=== PATIENT | male | born 1950 | race Caucasian/White ===

== ENCOUNTER 2016-12-21 08:20 | Inpatient (IN) ==
[2016-12-21] MEDS ORDERED: DEXTROSE 50% 25 GM/50 ML VIAL IV PRN (11:57)
[2016-12-21] MEDS ORDERED: GLUCAGON 1 MG VIAL IM PRN (11:57)
[2016-12-21] MEDS ORDERED: oxyCODONE/ACETAMINOPHEN 5-325 MG TABLET PO PRN (12:09)
--- NOTE | 2016-12-21 12:17 | Cardiothoracic History & Phys ---
History of Present Illness Chief complaint: chest pain History of present illness: Mr. Choi is a 66 year old male to [facility] with a complaint of substernal chest discomfort. Patient underwent evaluation by Dr. Stone including cardiac catheterization which demonstrated critical left main coronary disease the patient is referred for bypass surgery. 3 admitted for that purpose. Past medical history is significant for history of morbid obesity. The patient weighed up to 500 pounds but has lost down to wait of 400 pounds where he is now. As a history of musculoskeletal discomfort hyperlipidemia hypertension and chronic pain syndrome. Patient's family history and review of systems are noncontributory to the present illness. Physical examination: Patient is an obese white male in no acute distress. Examination of HEENT show the pupils are equal and react to light extraocular motions are intact. The oropharynx is benign. Examination of the neck showsno masses and there is no thyromegaly. Examination the chest is clear to percussion and auscultation. Examination of heart shows regular sinus rhythm and there are no murmurs. Examination the abdomen shows no masses or organomegaly and there is no tenderness. Examination extremities shows no cyanosis or edema. Neurological examination is grossly within normal limits. Assessment: Coronary artery disease including left main coronary stenosis. Plan: Coronary bypass surgery 12/26/2016. Quality Measures - VTE Contraindication to Pharmacological VTE Prophylaxis: High Risk of Bleeding
[2016-12-21] MEDS ORDERED: ZALEPLON 5 MG CAPSULE PO PRN (16:08)
[2016-12-21] MEDS: SODIUM CHLORIDE 0.9% 1,000 ML IV SCH (16:26)
[2016-12-21] MEDS: CITALOPRAM 20 MG TABLET PO SCH (20:54)
[2016-12-21] MEDS: CHLORHEXIDINE 0.12% ORAL RINSE 60 ML BOTTLE SWISH/SPIT SCH (20:54)
[2016-12-21] MEDS: ATORVASTATIN 10 MG TABLET PO SCH (20:54)
--- NOTE | 2016-12-22 09:32 | Cardiothoracic Progress Note ---
Cardiothoracic Subjective Interval history: She is ready for surgery on Saturday. His body habitus is going to make surgery a formidable challenge. Exam (Progress Note) - Constitutional Vitals: Period Temp Pulse Resp BP Sys/Lobo Pulse Ox Last 24 Hr 98.1 F-99.6 F 71-85 16-20 106-153/55-72 92-96 Quality Measures - VTE Contraindication to Pharmacological VTE Prophylaxis: High Risk of Bleeding
[2016-12-22] MEDS: LISINOPRIL 20 MG TABLET PO SCH (10:03)
[2016-12-22] MEDS: TRIAMTERENE/HCTZ 37.5-25 MG TABLET PO SCH (10:03)
[2016-12-22] MEDS: CHLORHEXIDINE 0.12% ORAL RINSE 60 ML BOTTLE SWISH/SPIT SCH ×2 (10:04→20:53)
[2016-12-22] MEDS: SODIUM CHLORIDE 0.9% 1,000 ML IV SCH (14:54)
[2016-12-22] MEDS: CITALOPRAM 20 MG TABLET PO SCH (20:53)
[2016-12-22] MEDS: ATORVASTATIN 10 MG TABLET PO SCH (20:53)
--- NOTE | 2016-12-23 08:26 | Cardiothoracic Progress Note ---
Cardiothoracic Subjective Interval history: Patient is ready for surgery on Saturday. Exam (Progress Note) - Constitutional Vitals: Period Temp Pulse Resp BP Sys/Lobo Pulse Ox Last 24 Hr 97.9 F-99.0 F 65-99 18-24 110-141/52-84 92-96 Quality Measures - VTE Contraindication to Pharmacological VTE Prophylaxis: High Risk of Bleeding
[2016-12-23] MEDS: LISINOPRIL 20 MG TABLET PO SCH (09:07)
[2016-12-23] MEDS: CHLORHEXIDINE 0.12% ORAL RINSE 60 ML BOTTLE SWISH/SPIT SCH ×2 (09:07→20:29)
[2016-12-23] MEDS: TRIAMTERENE/HCTZ 37.5-25 MG TABLET PO SCH (09:07)
[2016-12-23] MEDS: SODIUM CHLORIDE 0.9% 1,000 ML IV SCH (15:23)
[2016-12-23] MEDS: CITALOPRAM 20 MG TABLET PO SCH (20:28)
[2016-12-23] MEDS: ATORVASTATIN 10 MG TABLET PO SCH (20:28)
--- NOTE | 2016-12-24 06:25 | Cardiothoracic Progress Note ---
Cardiothoracic Subjective Interval history: Patient is pain-free and is ready for surgery on Saturday. Exam (Progress Note) - Constitutional Vitals: Period Temp Pulse Resp BP Sys/Lobo Pulse Ox Last 24 Hr 97.8 F-99.0 F 60-82 18-22 109-144/54-67 92-94 Quality Measures - VTE Contraindication to Pharmacological VTE Prophylaxis: High Risk of Bleeding
--- NOTE | 2016-12-24 07:32 | EKG Report ---
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
[2016-12-24] MEDS: LISINOPRIL 20 MG TABLET PO SCH (08:48)
[2016-12-24] MEDS: TRIAMTERENE/HCTZ 37.5-25 MG TABLET PO SCH (08:48)
[2016-12-24] MEDS: CHLORHEXIDINE 0.12% ORAL RINSE 60 ML BOTTLE SWISH/SPIT SCH ×2 (08:51→20:34)
[2016-12-24 11:59] LABS: Basophils % 0.4 % (0.0-0.8); Eosinophils # 0.1 10*3/uL (0.0-0.87); Eosinophils % 1.7 % (0.00-10.9); Hematocrit 42.1 VOL% (42.0-52.0); Hemoglobin 13.8 GM/DL (14.0-18.0); Immature Granulocytes % 0.3 %; Immature Granulocytes Absolute 0.02 #; Lymphocytes # 1.5 10*3/uL (1.4-4.0); Lymphocytes % 21.1 % (21.2-54.2); Mean Corpuscular HGB Conc 32.8 GM/DL (32-36); Mean Corpuscular Hemoglobin 30 PG (27-34); Mean Corpuscular Volume 90.3 FL (87-102); Mean Platelet Volume 11.3 FL (9.6-12.0); Monocytes # 0.6 10*3/uL (0.11-0.8); Monocytes % 8.3 % (1.7-12.7); Neutrophils # 4.9 10*3/uL (1.4-7.4); Neutrophils % 68.2 % (38.7-73.9); Platelet Count 171 T/CUMM (130-400); Red Blood Count 4.66 MC/CUMM (3.8-5.5); Red Cell Distribution Width 14.9 % (9.3-17.3); White Blood Count 7.2 T/CUMM (4-12)
[2016-12-24 12:42] LABS: Albumin 4.1 G/DL (3.4-5.0); Bilirubin,Total 1.3 MG/DL (0.2-1.0); Calcium 10.1 MG/DL (8.5-10.1); Osmolality,Calculated 285.3 MOS/KG (273-304); Potassium 4.3 MMOL/L (3.5-5.1); Total Protein 7.1 G/DL (6.4-8.3)
--- NOTE | 2016-12-24 14:11 | XRay Report ---
History: Coronary artery disease Date: 12/24/2016 Study: Chest x-ray PA and lateral Comparison exam: No previous currently available The cardiac silhouette is not enlarged. There is no mediastinal mass. There is mild aortic arch calcification. The pulmonary vasculature is not engorged. There is no pleural effusion. There is no infiltrate to suggest pneumonia. There is osteopenia and mild thoracic spondylosis. Impression: No acute cardiopulmonary process PROCEDURE INTERPRETED AT [facility] DEPARTMENT OF RADIOLOGY Final Report Signed by: Dr. Darling Boyd
[2016-12-24] MEDS: SODIUM CHLORIDE 0.9% 1,000 ML IV SCH (16:08)
[2016-12-24] MEDS: CITALOPRAM 20 MG TABLET PO SCH (20:33)
[2016-12-24] MEDS: ATORVASTATIN 10 MG TABLET PO SCH (20:33)
[2016-12-25] MEDS: LISINOPRIL 20 MG TABLET PO SCH (09:08)
[2016-12-25] MEDS: CHLORHEXIDINE 0.12% ORAL RINSE 60 ML BOTTLE SWISH/SPIT SCH ×2 (09:09→20:39)
[2016-12-25] MEDS: TRIAMTERENE/HCTZ 37.5-25 MG TABLET PO SCH (09:09)
--- NOTE | 2016-12-25 09:50 | Cardiothoracic Progress Note ---
Cardiothoracic Subjective Interval history: Patient is pain-free and is ready for surgery in the morning. Exam (Progress Note) - Constitutional Vitals: Period Temp Pulse Resp BP Sys/Lobo Pulse Ox Last 24 Hr 97.2 F-98.1 F 62-69 18-20 117-150/57-66 92-96 Result/EKG - Labs CBC & BMP: 12/24/16 11:53 12/24/16 11:53 Labs: Laboratory Results - last 24 hr 12/24/16 12/24/16 11:53 11:53 WBC 7.2 RBC 4.66 Hgb 13.8 L Hct 42.1 MCV 90.3 MCH 30 MCHC 32.8 RDW 14.9 Plt Count 171 MPV 11.3 Neut % (Auto) 68.2 Lymph % (Auto) 21.1 L Piatt % (Auto) 8.3 Eos % (Auto) 1.7 Baso % (Auto) 0.4 Neut # (Auto) 4.9 Lymph # (Auto) 1.5 Piatt # (Auto) 0.6 Eos # (Auto) 0.1 Baso # (Auto) 0.0 Immature Gran % 0.3 Nucleated RBC % 0.0 Immature Gran # 0.02 Nucleated RBCs # 0.00 Sodium 141 Potassium 4.3 Chloride 105 Carbon Dioxide 24 Anion Gap 16.3 H BUN 23 H Creatinine 1.10 GFR Calculation 107 BUN/Creatinine Ratio 20.00 Glucose 109 H Calculated Osmolality 285.3 Calcium 10.1 Total Bilirubin 1.30 H AST 22 ALT 22 Alkaline Phosphatase 50 Total Protein 7.1 Albumin 4.1 Globulin 3.0 Albumin/Globulin Ratio 1.3 Quality Measures - VTE Contraindication to Pharmacological VTE Prophylaxis: High Risk of Bleeding
[2016-12-25] MEDS ORDERED: CEFUROXIME INJ 1,500 MG in SODIUM CHLORIDE 0.9% 100 ML IV ONE (11:57)
[2016-12-25] MEDS: CHLORHEXIDINE 4% SOLN 118 ML BOTTLE TOP SCH ×2 (17:14→20:08)
[2016-12-25] MEDS: ATORVASTATIN 10 MG TABLET PO SCH (20:08)
[2016-12-25] MEDS: CITALOPRAM 20 MG TABLET PO SCH (20:08)
[2016-12-26 03:39] LABS: ABG Base Excess 0.6 MMOL/L (-2.5-2.5); ABG HCO3 24.5 MMOL/L (20-26); ABG Oxygen Saturation 95.2 % (95-100); ABG PCO2 36.7 MM HG (35-48); ABG PH 7.442 (7.35-7.45); ABG PO2 74.2 MM HG (80-95); ABG TCO2 25.6 MMOL/L (23-27); Allen Test Positive; Pt O2 Delivery Device Room Air
[2016-12-26] MEDS ORDERED: PAPAVERINE 60 MG/2 ML VIAL ONE (04:37)
[2016-12-26] MEDS ORDERED: VANCOMYCIN 1,000 MG VIAL ONE (04:37)
[2016-12-26] MEDS ORDERED: FAMOTIDINE 20 MG/2 ML VIAL IV ONE (05:30)
[2016-12-26] MEDS ORDERED: LORazepam 1 MG TABLET PO ONE (05:30)
[2016-12-26] MEDS ORDERED: CEFUROXIME INJ 1,500 MG in SODIUM CHLORIDE 0.9% 100 ML IV ONE (06:00)
[2016-12-26] MEDS: CHLORHEXIDINE 0.12% ORAL RINSE 60 ML BOTTLE SWISH/SPIT SCH ×2 (06:15→17:26)
[2016-12-26] MEDS: CHLORHEXIDINE 4% SOLN 118 ML BOTTLE TOP SCH ×2 (06:16→17:26)
[2016-12-26] MEDS: TRIAMTERENE/HCTZ 37.5-25 MG TABLET PO SCH ×2 (06:16→17:26)
[2016-12-26] MEDS: LISINOPRIL 20 MG TABLET PO SCH ×2 (06:16→17:26)
[2016-12-26 06:35] LABS: INR 1.1; PT Patient Result 11.4 SECS; Partial Thromboplastin Time 27.8 SECS (0-40)
[2016-12-26] MEDS ORDERED: AMINOCAPROIC ACID 5,000 MG/20 ML VIAL IV ONE ×2 (06:44→10:39)
[2016-12-26] MEDS ORDERED: MINERAL OIL/PETROLATUM OPH OINT 3.5 GM TUBE ONE ×2 (06:44→10:39)
[2016-12-26] MEDS ORDERED: PHENYLEPHRINE 20 MG/250 ML PREMIX IV ONE (06:44)
[2016-12-26] MEDS ORDERED: ETOMIDATE 20 MG/10 ML VIAL IV ONE ×2 (06:44→10:39)
[2016-12-26] MEDS ORDERED: NITROGLYCERIN 50 MG/250 ML BOTTLE IV ONE (06:44)
[2016-12-26] MEDS ORDERED: VECURONIUM 10 MG VIAL IV ONE (06:44)
[2016-12-26] MEDS ORDERED: CALCIUM CHLORIDE 1,000 MG/10 ML SYRINGE IV ONE ×3 (06:44→10:38)
[2016-12-26 07:38] LABS: ABG HCO3 24.5 MMOL/L (20-26); ABG PCO2 33.3 MM HG (35-48); ABG PH 7.453 (7.35-7.45); ABG TCO2 20.5 MMOL/L (23-27); Glucose Heart Surgery 105 MG/DL (74-106); Hematocrit Heart Surgery 37.3 PERCENT (42-52); Hemoglobin Heart Surgery 12.1 G/DL (14.0-18.0); Ionized Calcium Arterial 1.19 MMOL/L (1.21-1.46); PCO2 Patient Temp Arterial 33.3 MMHG; PH Patient Temp Arterial 7.453; Patient Temperature 37 CELCIUS; Sodium Heart/CVR 137 MMOL/L (135-145)
[2016-12-26 07:43] LABS: Apearance,Urine CLEAR (Clear); Bilirubin,Urine Negative (Negative); Blood, Urine Negative (Negative); Glucose,Urine (UA) Negative (Negative); Ketones,Urine Negative (Negative); Mucus,Urine Occasional /LPF (Occasional); Nitrite,Urine Negative (Negative); Protein,Urine Negative; Urine Color Yellow (Yellow); Urine Urobilinogen < 2.0 EU/DL (0.2-1.0); WBC,Urine <1 /HPF (0-6)
[2016-12-26 08:49] LABS: Hematocrit Heart Surgery 28.7 PERCENT (42-52); Hemoglobin Heart Surgery 9.3 G/DL (14.0-18.0); PCO2 Patient Temp Venous 39.6 MM HG; PH Patient Temp Venous 7.407; PO2 Patient Temp Venous 38.5 MM HG; Potassium Heart/CVR 4.8 MMOL/L (3.5-5.1); VBG Base Excess 0.4 MEQ/L (0-4); VBG HCO3 24.5 MEQ/L (24-28); VBG PCO2 43.6 MMHG (41-51); VBG PH 7.378; VBG PO2 44.2 MMHG (17-40)
[2016-12-26 09:25] LABS: Hematocrit Heart Surgery 28.5 PERCENT (42-52); Hemoglobin Heart Surgery 9.2 G/DL (14.0-18.0); PH Patient Temp Venous 7.355; PO2 Patient Temp Venous 40.4 MM HG; Potassium Heart/CVR 5.9 MMOL/L (3.5-5.1); VBG Base Excess -1.5 MEQ/L (0-4); VBG HCO3 22.8 MEQ/L (24-28); VBG Oxygen Saturation 74.1 %; VBG PH 7.355; VBG PO2 40.4 MMHG (17-40)
[2016-12-26 09:52] LABS: ABG Base Excess -2.6 MMOL/L (-2.5-2.5); ABG HCO3 22.2 MMOL/L (20-26); ABG Oxygen Saturation 99.7 % (95-100); ABG PCO2 39.6 MM HG (35-48); ABG PH 7.363 (7.35-7.45); ABG TCO2 20.5 MMOL/L (23-27); Glucose Heart Surgery 190 MG/DL (74-106); Hematocrit Heart Surgery 31.1 PERCENT (42-52); Hemoglobin Heart Surgery 10.1 G/DL (14.0-18.0); Ionized Calcium Arterial 1.24 MMOL/L (1.21-1.46); PCO2 Patient Temp Arterial 39.6 MMHG; PH Patient Temp Arterial 7.363; Patient Temperature 37 CELCIUS; Potassium Heart/CVR 4.6 MMOL/L (3.5-5.1); Sodium Heart/CVR 132 MMOL/L (135-145)
[2016-12-26] MEDS ORDERED: DEXTROSE 5% KCL 20 MEQ 20 MEQ/1,000 ML BAG IV ONE (09:58)
[2016-12-26] MEDS ORDERED: MAGNESIUM SULFATE 1 GM/2 ML VIAL ONE (09:58)
[2016-12-26] MEDS ORDERED: HEPARIN 10,000 UNIT/10 ML VIAL ONE (09:58)
[2016-12-26] MEDS ORDERED: methylPREDNISolone SOD SUC 1,000 MG/8 ML VIAL ONE (09:58)
[2016-12-26] MEDS ORDERED: PROTAMINE SULFATE 250 MG/25 ML VIAL IV ONE (09:58)
[2016-12-26] MEDS ORDERED: FUROSEMIDE 20 MG/2 ML VIAL ONE (09:58)
[2016-12-26] MEDS ORDERED: MANNITOL 12.5 GM/50 ML VIAL IV ONE (09:58)
[2016-12-26] MEDS ORDERED: SODIUM BICARBONATE 50 MEQ/50 ML SYRINGE IV ONE (09:58)
[2016-12-26] MEDS ORDERED: ALBUMIN 25% 25 GM/100 ML VIAL IV ONE (09:58)
[2016-12-26] MEDS ORDERED: POTASSIUM CHLORIDE 20 MEQ/10 ML VIAL ONE (09:59)
[2016-12-26] MEDS ORDERED: PHENYLEPHRINE DRIP 40 MG/250 ML PREMIX IV ONE (09:59)
[2016-12-26] MEDS ORDERED: NITROPRUSSIDE 50 MG/2 ML VIAL ONE (09:59)
[2016-12-26] MEDS ORDERED: POTASSIUM CHLORIDE RIDER 100 ML IV ONE (09:59)
[2016-12-26] MEDS ORDERED: PROTAMINE SULFATE 50 MG/5 ML VIAL IV ONE ×3 (09:59→11:08)
[2016-12-26] MEDS ORDERED: ALBUMIN 5% 12.5 GM/250 ML VIAL IV ONE (10:03)
[2016-12-26] MEDS ORDERED: ACETAMINOPHEN 650 MG SUPP RECTAL PRN (10:29)
[2016-12-26] MEDS ORDERED: ALBUMIN 5% 12.5 GM in PREMIX 1 EACH IV PRN (10:29)
[2016-12-26] MEDS ORDERED: LACTATED RINGERS 250 ML IV PRN (10:29)
[2016-12-26] MEDS ORDERED: DEXTROSE 50% 25 GM/50 ML VIAL IV PRN ×2 (10:29)
[2016-12-26] MEDS ORDERED: POTASSIUM CHLORIDE RIDER 10 MEQ in PREMIX 1 EACH IV PRN (10:29)
[2016-12-26] MEDS ORDERED: INSULIN REGULAR 100 UNIT/ML IV ONE (10:29)
[2016-12-26] MEDS ORDERED: PHENYLEPHRINE DRIP 40 MG/250 ML PREMIX IV PRN (10:29)
[2016-12-26] MEDS ORDERED: NITROPRUSSIDE 100 MG in DEXTROSE 5% 250 ML IV PRN (10:29)
[2016-12-26] MEDS ORDERED: CALCIUM CHLORIDE 1,000 MG/10 ML SYRINGE IV PRN (10:29)
[2016-12-26] MEDS ORDERED: MORPHINE 2 MG/1 ML SYRINGE IV PRN (10:29)
[2016-12-26] MEDS ORDERED: MORPHINE 10 MG/1 ML VIAL IV PRN (10:29)
[2016-12-26] MEDS ORDERED: VECURONIUM 10 MG VIAL IV PRN ×2 (10:29)
[2016-12-26] MEDS ORDERED: MIDAZOLAM 2 MG/2 ML VIAL IV PRN (10:29)
[2016-12-26] MEDS ORDERED: MAGNESIUM SULF RIDER 4 GM in PREMIX 1 EACH IV PRN (10:29)
[2016-12-26] MEDS ORDERED: ONDANSETRON 4 MG/2 ML VIAL IV PRN (10:29)
[2016-12-26] MEDS ORDERED: INSULIN REGULAR 100 UNIT/ML IV PRN (10:29)
[2016-12-26] MEDS ORDERED: MIDAZOLAM 10 MG/2 ML VIAL IV PRN (10:29)
[2016-12-26] MEDS ORDERED: MAGNESIUM SULF RIDER 2 GM in PREMIX 1 EACH IV PRN (10:29)
[2016-12-26] MEDS ORDERED: SODIUM CHLORIDE 0.45% 1,000 ML IV SCH ×2 (10:30)
[2016-12-26] MEDS ORDERED: INSULIN REGULAR DRIP 100 ML IV SCH (10:30)
[2016-12-26] MEDS ORDERED: KETOROLAC 30 MG/1 ML VIAL IV SCH (10:30)
[2016-12-26] MEDS ORDERED: SEVOFLURANE 1 UNIT/15 MINUTE INH ONE (10:38)
[2016-12-26] MEDS ORDERED: HEPARIN/NACL 0.9% 2 UNITS/ML 500 ML IV ONE (10:38)
[2016-12-26] MEDS ORDERED: SUFentanil 250 MCG/5 ML AMP ONE ×2 (10:38)
[2016-12-26] MEDS ORDERED: SODIUM CHLORIDE 0.9% 1,000 ML IV ONE (10:39)
[2016-12-26] MEDS ORDERED: SODIUM CHLORIDE 0.9% 100 ML IV ONE (10:39)
[2016-12-26] MEDS ORDERED: ePHEDrine 50 MG/ML AMP ONE (10:39)
[2016-12-26] MEDS ORDERED: SODIUM CHLORIDE 0.9% 250 ML IV ONE (10:39)
[2016-12-26] MEDS ORDERED: MIDAZOLAM 10 MG/2 ML VIAL ONE (10:39)
[2016-12-26] MEDS ORDERED: LACTATED RINGERS 1,000 ML IV ONE (10:39)
[2016-12-26] MEDS ORDERED: NITROGLYCERIN DRIP 50 MG/250 ML BOTTLE IV ONE (10:39)
--- NOTE | 2016-12-26 11:15 | XRay Report ---
Portable chest Date: 12/26/2016 Clinical history: Line placement Comparison: 12/24/2016 Technique: Portable AP sitting chest Findings: The heart appears larger in size with interval median sternotomy. The endotracheal tube, nasogastric tube, and mediastinal chest tubes are in satisfactory position. Right IJ CVP line with tip at junction of SVC and right atrium. No definite pneumothorax is identified. Progressive diffuse parenchymal findings assessment of the lung bases with small pleural effusions. Impression: Interval median sternotomy with support devices in satisfactory position. No definite pneumothorax. Progressive atelectasis/edema especially at the lung bases with small pleural effusions. PROCEDURE INTERPRETED AT [facility] DEPARTMENT OF RADIOLOGY Final Report Signed by: Dr. Leeanne Auguste
--- NOTE | 2016-12-26 11:22 | Operative Note ---
Date of procedure: 12/26/16 Pre-op diagnosis: coronary artery disease Post-op diagnosis: same Procedure: Procedure: Coronary bypass grafting times to the left internal mammary grafted anterior descending coronary artery and a saphenous vein graft to the obtuse marginal coronary artery. Findings: Patient is a 66-year-old man who presented to [facility] with substernal chest discomfort and cardiac catheterization which demonstrated left main coronary stenosis. Patient was referred for bypass surgery and its time of surgery left ventricular function was noted to be normal and a left internal mammary graft was placed to a large undiseased anterior descending coronary artery and saphenous vein graft was placed to a large obtuse marginal coronary artery which was also free of disease. Patient tolerated the procedure well was returned recovery in satisfactory condition. Procedure: Patient brought to the operating room placed on the operating table in the supine position. Operating table in the supine position. Chest abdomen and legs were prepped and draped in a sterile fashion and the greater saphenous vein was harvested from the right lower leg and prepared as an arterial graft. Incision leg was closed with 30 subcutaneous cutaneous Monopril and 3-0 subcuticular Monocryl. Attention was then turned to the sternum and a standard sternotomy incision was made and the sternum was divided. Heart was suspended in a pericardial cradle and the left internal mammary artery was dissected free from its position in the anterior chest wall and prepared as an arterial graft. Patient was prepared for cardiopulmonary bypass with systemic heparinization and cannulation of the ascending aorta and right atrium. Cardiopulmonary bypass was begun and the aorta was crossclamped and the heart arrested with cardioplegia solution injected into the aortic root. Heart was protected during the period of crossclamping with topical saline slush. Distal anastomoses were constructed as noted above and then the aorta was unclamped reestablished and cardiac action. Proximal anastomosis was constructed between the ascending aorta and the inflow end of the saphenous vein graft. Patient was then weaned from cardiopulmonary bypass without difficulty. Heparin effect was reversed with protamine and decannulation carried out in the usual fashion with the defects in the ascending aorta and right atrium closed with 3-0 Prolene. Operative field was inspected for hemostasis Anesthesia: IFEANYI Surgeon / Physician: Vicente Zavala Estimated blood loss: other Specimens: none sent Condition: stable Disposition: ICU Results - Labs CBC & BMP: 12/26/16 07:32 03/06/17 11:53 Discharge Plan - Discharge Medications No Action hydrALAZINE TAB [Apresoline Tab] 50 mg PO TID Benazepril [Lotensin] 40 mg PO DAILY Triamterene/Hydrochlorothiazid [Triamterene-Hctz 37.5-25 mg Tb] 1 tablet PO DAILY Furosemide [Furosemide] 40 mg PO DAILY Cholecalciferol (Vitamin D3) [Vitamin D3] 5,000 unit PO DAILY Atorvastatin Calcium 10 mg PO DAILY Citalopram Hydrobromide [Citalopram HBr] 20 mg PO DAILY - Follow Up or Referral - Forms/Instructions
[2016-12-26 11:30] LABS: Basophils % 0.4 % (0.0-0.8); Eosinophils # 0.1 10*3/uL (0.0-0.87); Eosinophils % 1.4 % (0.00-10.9); Hematocrit 34.6 VOL% (42.0-52.0); Immature Granulocytes % 0.5 %; Immature Granulocytes Absolute 0.03 #; Lymphocytes # 0.7 10*3/uL (1.4-4.0); Lymphocytes % 12.3 % (21.2-54.2); Mean Corpuscular HGB Conc 33.2 GM/DL (32-36); Mean Corpuscular Hemoglobin 30 PG (27-34); Mean Corpuscular Volume 89.9 FL (87-102); Mean Platelet Volume 11.7 FL (9.6-12.0); Monocytes # 0.5 10*3/uL (0.11-0.8); Monocytes % 9.5 % (1.7-12.7); Neutrophils # 4.3 10*3/uL (1.4-7.4); Neutrophils % 75.9 % (38.7-73.9); Platelet Count 133 T/CUMM (130-400); Red Blood Count 3.85 MC/CUMM (3.8-5.5); White Blood Count 5.7 T/CUMM (4-12)
[2016-12-26 11:31] LABS: ABG Base Excess -1.2 MMOL/L (-2.5-2.5); ABG HCO3 23.4 MMOL/L (20-26); ABG Oxygen Saturation 98.4 % (95-100); ABG PCO2 31.3 MM HG (35-48); ABG PH 7.452 (7.35-7.45); ABG TCO2 19.3 MMOL/L (23-27); Glucose Heart Surgery 138 MG/DL (74-106); Hematocrit Heart Surgery 37.1 PERCENT (42-52); Potassium Heart/CVR 4.4 MMOL/L (3.5-5.1)
[2016-12-26 11:34] LABS: Hemoglobin 11.5 GM/DL (14.0-18.0)
[2016-12-26 11:40] LABS: INR 1.2; Partial Thromboplastin Time 27.9 SECS (0-40)
[2016-12-26 12:00] LABS: Albumin 3.2 G/DL (3.4-5.0); Bilirubin,Total 1.4 MG/DL (0.2-1.0); Calcium 8.9 MG/DL (8.5-10.1); Magnesium 2.2 MG/DL (1.8-2.4); Osmolality,Calculated 287.3 MOS/KG (273-304); Potassium 4.6 MMOL/L (3.5-5.1); Total Protein 5.6 G/DL (6.4-8.3)
[2016-12-26 12:32] LABS: CKMB % 6.1 %
[2016-12-26 16:03] LABS: ABG HCO3 23.6 MMOL/L (20-26); ABG Oxygen Saturation 99.5 % (95-100); ABG PCO2 36.1 MM HG (35-48); ABG PH 7.414 (7.35-7.45); ABG TCO2 20.3 MMOL/L (23-27); Glucose Heart Surgery 175 MG/DL (74-106); Hematocrit Heart Surgery 37.7 PERCENT (42-52); Hemoglobin Heart Surgery 12.3 G/DL (14.0-18.0); Potassium Heart/CVR 4.9 MMOL/L (3.5-5.1)
[2016-12-26] MEDS ORDERED: LACTATED RINGERS 1,000 ML IV PRN (16:23)
[2016-12-26] MEDS ORDERED: INSULIN REGULAR 100 UNIT/ML SUBCUT SCH ×3 (16:48→20:00)
--- NOTE | 2016-12-26 16:58 | Anesthesia ---
Anesthesia Post OP - Post Ansesthetic Evaluation Patient seen in post op: Yes Resp: within normal limits CV: within normal limits Mental: within normal limits Temp: within normal limits [id number]: within normal limits Nausea and Vomiting: within normal limits Pain: within normal limits
[2016-12-26] MEDS ORDERED: INSULIN REGULAR 100 UNIT/ML ONE (17:31)
[2016-12-26] MEDS: INSULIN REGULAR 100 UNIT/ML SUBCUT SCH ×2 (17:33→20:14)
[2016-12-26] MEDS: CEFUROXIME INJ 1,500 MG in SODIUM CHLORIDE 0.9% 100 ML IV SCH (17:38)
[2016-12-26 18:13] LABS: ABG Base Excess -1.6 MMOL/L (-2.5-2.5); ABG HCO3 23.1 MMOL/L (20-26); ABG Oxygen Saturation 98.1 % (95-100); ABG PCO2 34.9 MM HG (35-48); ABG PH 7.415 (7.35-7.45); ABG TCO2 19.8 MMOL/L (23-27); Glucose Heart Surgery 185 MG/DL (74-106)
[2016-12-26 18:14] LABS: Potassium Heart/CVR 6.5 MMOL/L (3.5-5.1)
[2016-12-26] MEDS ORDERED: FUROSEMIDE 40 MG/4 ML VIAL IV ONE (18:33)
[2016-12-26 19:14] LABS: Troponin I Only 5.42 NG/ML (0.00-0.045)
[2016-12-26 19:59] LABS: ABG Base Excess -1.8 MMOL/L (-2.5-2.5); ABG HCO3 22.9 MMOL/L (20-26); ABG PCO2 33.4 MM HG (35-48); ABG PH 7.425 (7.35-7.45); ABG TCO2 19.4 MMOL/L (23-27); Glucose Heart Surgery 185 MG/DL (74-106); Hematocrit Heart Surgery 36.1 PERCENT (42-52); Hemoglobin Heart Surgery 11.7 G/DL (14.0-18.0); Potassium Heart/CVR 4.3 MMOL/L (3.5-5.1)
[2016-12-26] MEDS: POTASSIUM CHLORIDE RIDER 20 MEQ in PREMIX 1 EACH IV PRN ×2 (20:22→22:07)
[2016-12-26] MEDS ORDERED: CHLORHEXIDINE 0.12% ORAL RINSE 60 ML BOTTLE SWISH/SPIT SCH (21:00)
[2016-12-26 22:03] LABS: ABG Base Excess -1.8 MMOL/L (-2.5-2.5); ABG HCO3 22.9 MMOL/L (20-26); ABG Oxygen Saturation 99.1 % (95-100); ABG PCO2 38.5 MM HG (35-48); ABG PH 7.383 (7.35-7.45); ABG TCO2 20.4 MMOL/L (23-27); Glucose Heart Surgery 185 MG/DL (74-106); Hematocrit Heart Surgery 36.4 PERCENT (42-52); Hemoglobin Heart Surgery 11.8 G/DL (14.0-18.0); Potassium Heart/CVR 4.4 MMOL/L (3.5-5.1)
[2016-12-27 00:03] LABS: ABG HCO3 22.7 MMOL/L (20-26); ABG Oxygen Saturation 98.2 % (95-100); ABG PCO2 38.9 MM HG (35-48); ABG PH 7.377 (7.35-7.45); ABG TCO2 20.3 MMOL/L (23-27); Glucose Heart Surgery 176 MG/DL (74-106); Hematocrit Heart Surgery 36.8 PERCENT (42-52); Hemoglobin Heart Surgery 11.9 G/DL (14.0-18.0); Potassium Heart/CVR 4.7 MMOL/L (3.5-5.1)
[2016-12-27] MEDS: INSULIN REGULAR 100 UNIT/ML SUBCUT SCH ×6 (00:10→20:38)
[2016-12-27 01:31] LABS: ABG Base Excess -2.2 MMOL/L (-2.5-2.5); ABG HCO3 22.5 MMOL/L (20-26); ABG Oxygen Saturation 98.2 % (95-100); ABG PCO2 42.4 MM HG (35-48); ABG PH 7.349 (7.35-7.45); ABG TCO2 20.9 MMOL/L (23-27); Glucose Heart Surgery 175 MG/DL (74-106); Hematocrit Heart Surgery 35.8 PERCENT (42-52); Hemoglobin Heart Surgery 11.6 G/DL (14.0-18.0); Potassium Heart/CVR 4.5 MMOL/L (3.5-5.1)
[2016-12-27 03:53] LABS: ABG Base Excess -2.4 MMOL/L (-2.5-2.5); ABG HCO3 22.4 MMOL/L (20-26); ABG Oxygen Saturation 97.4 % (95-100); ABG PCO2 44.9 MM HG (35-48); ABG PO2 98.4 MM HG (80-95); ABG TCO2 21.3 MMOL/L (23-27); Glucose Heart Surgery 174 MG/DL (74-106); Hematocrit Heart Surgery 35.8 PERCENT (42-52); Hemoglobin Heart Surgery 11.6 G/DL (14.0-18.0); Potassium Heart/CVR 4.4 MMOL/L (3.5-5.1)
[2016-12-27 03:55] LABS: Basophils % 0.1 % (0.0-0.8); Hematocrit 34.3 VOL% (42.0-52.0); Hemoglobin 11.3 GM/DL (14.0-18.0); Immature Granulocytes % 0.5 %; Immature Granulocytes Absolute 0.06 #; Lymphocytes # 0.5 10*3/uL (1.4-4.0); Lymphocytes % 4.1 % (21.2-54.2); Mean Corpuscular HGB Conc 32.9 GM/DL (32-36); Mean Corpuscular Hemoglobin 30 PG (27-34); Mean Platelet Volume 12.1 FL (9.6-12.0); Monocytes # 0.5 10*3/uL (0.11-0.8); Monocytes % 4.6 % (1.7-12.7); Neutrophils # 10.1 10*3/uL (1.4-7.4); Neutrophils % 90.7 % (38.7-73.9); Platelet Count 124 T/CUMM (130-400); Red Blood Count 3.81 MC/CUMM (3.8-5.5); White Blood Count 11.1 T/CUMM (4-12)
[2016-12-27 04:31] LABS: Albumin 3.7 G/DL (3.4-5.0); Bilirubin,Direct 0.3 MG/DL (0.0-0.20); Bilirubin,Total 1.5 MG/DL (0.2-1.0); Magnesium 2.4 MG/DL (1.8-2.4); Osmolality,Calculated 292.1 MOS/KG (273-304); Potassium 4.6 MMOL/L (3.5-5.1); Total Protein 5.9 G/DL (6.4-8.3)
[2016-12-27 04:32] LABS: CKMB % 8.7 %
[2016-12-27 04:35] LABS: Troponin I Only 6.4 NG/ML (0.00-0.045)
[2016-12-27 05:12] LABS: Elliptocytes Few; Giant Platelets Few; Hypochromasia 1+; Lymphocytes 6 % (20-55); Platelet Estimate Normal; Segmented Neutrophils 90 % (50-85); Total Cells Counted 100
[2016-12-27] MEDS: CEFUROXIME INJ 1,500 MG in SODIUM CHLORIDE 0.9% 100 ML IV SCH (05:33)
--- NOTE | 2016-12-27 05:54 | Cardiothoracic Progress Note ---
Cardiothoracic Subjective Interval history: Patient is awake alert and extubated. Vital signs were stable through the night and his blood pressure and heart rate are within normal limits this morning. Blood gases are excellent postextubation and urine output has been good with a creatinine in the range of 1.3. Chest tube drainage is minimal and his chest tubes have been discontinued and he is ready for transfer to telemetry later this morning. Overall his progress is satisfactory. Exam (Progress Note) - Constitutional Vitals: Period Temp Pulse Resp BP Sys/Lobo Pulse Ox Last 24 Hr 96.5 F-98.5 F 80-94 8-16 104-145/41-97 93-98 Result/EKG - Labs CBC & BMP: 12/27/16 03:57 12/27/16 03:48 Labs: Laboratory Results - last 24 hr 12/25/16 12/26/16 12/26/16 11:30 05:57 07:32 WBC RBC Hgb Hct MCV MCH MCHC RDW Plt Count 67 L D MPV Neut % (Auto) Lymph % (Auto) [place] % (Auto) Eos % (Auto) Baso % (Auto) Neut # (Auto) Lymph # (Auto) [place] # (Auto) Eos # (Auto) Baso # (Auto) Total Counted Immature Gran % Nucleated RBC % Immature Gran # Segmented Neutrophils Lymphocytes Monocytes Nucleated RBCs # Platelet Estimate Giant Platelets Hypochromasia Elliptocytes INR 1.1 PT Patient/Control Mix 11.4 Circ Anticoag PTT 27.8 Patient Temperature ABG pH ABG pH at Pt Temp ABG pCO2 ABG pCO2 at Pt Temp ABG pO2 ABG pO2 at Pt Temp ABG HCO3 ABG Total CO2 ABG O2 Saturation ABG Base Excess ABG Sodium VBG pH VBG pCO2 VBG pO2 VBG HCO3 VBG Total CO2 VBG O2 Saturation VBG Base Excess Hemoglobin Hematocrit Potassium Glucose Ionized Calcium FiO2 Sodium Chloride Carbon Dioxide Anion Gap BUN Creatinine GFR Calculation BUN/Creatinine Ratio POC Glucose Calculated Osmolality Calcium Venous Ioniz Calcium Magnesium Total Bilirubin Direct Bilirubin AST ALT Alkaline Phosphatase Total Creatine Kinase CK-MB (CK-2) CK and CKMB Interp Troponin I Total Protein Albumin Globulin Albumin/Globulin Ratio Urine Color Urine Appearance Urine pH Ur Specific [place] Urine Protein Urine Glucose (UA) Urine Ketones Urine Blood Urine Nitrate Urine Bilirubin Urine Urobilinogen Urine Leukocytes Urine WBC Urine Mucus Ur Culture Indicated? Blood Type A POSITIVE Antibody Screen Negative Crossmatch See Detail 12/26/16 12/26/16 12/26/16 07:32 07:35 08:45 WBC RBC Hgb Hct MCV MCH MCHC RDW Plt Count MPV Neut % (Auto) Lymph % (Auto) [place] % (Auto) Eos % (Auto) Baso % (Auto) Neut # (Auto) Lymph # (Auto) [place] # (Auto) Eos # (Auto) Baso # (Auto) Total Counted Immature Gran % Nucleated RBC % Immature Gran # Segmented Neutrophils Lymphocytes Monocytes Nucleated RBCs # Platelet Estimate Giant Platelets Hypochromasia Elliptocytes INR PT Patient/Control Mix Circ Anticoag PTT Patient Temperature 37 35 ABG pH 7.453 H ABG pH at Pt Temp 7.453 7.407 ABG pCO2 33.3 L ABG pCO2 at Pt Temp 33.3 39.6 ABG pO2 446.0 H ABG pO2 at Pt Temp 446.0 38.5 ABG HCO3 24.5 ABG Total CO2 20.5 L ABG O2 Saturation 100.0 ABG Base Excess 0.0 ABG Sodium 137 132 L VBG pH 7.378 VBG pCO2 43.6 VBG pO2 44.2 H VBG HCO3 24.5 VBG Total CO2 23.7 VBG O2 Saturation 80.0 VBG Base Excess 0.4 Hemoglobin 12.1 L 9.3 L D Hematocrit 37.3 L 28.7 L Potassium 4.0 4.8 Glucose 105 200 H Ionized Calcium 1.19 L FiO2 80.00 Sodium Chloride Carbon Dioxide Anion Gap BUN Creatinine GFR Calculation BUN/Creatinine Ratio POC Glucose Calculated Osmolality Calcium Venous Ioniz Calcium 1.07 L Magnesium Total Bilirubin Direct Bilirubin AST ALT Alkaline Phosphatase Total Creatine Kinase CK-MB (CK-2) CK and CKMB Interp Troponin I Total Protein Albumin Globulin Albumin/Globulin Ratio Urine Color Yellow Urine Appearance Clear Urine pH 6.0 Ur Specific [place] 1.010 Urine Protein Negative Urine Glucose (UA) Negative Urine Ketones Negative Urine Blood Negative Urine Nitrate Negative Urine Bilirubin Negative Urine Urobilinogen < 2.0 H Urine Leukocytes Negative Urine WBC <1 Urine Mucus Occasional Ur Culture Indicated? 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 MPV Neut % (Auto) Lymph % (Auto) [place] % (Auto) Eos % (Auto) Baso % (Auto) Neut # (Auto) Lymph # (Auto) [place] # (Auto) Eos # (Auto) Baso # (Auto) Total Counted Immature Gran % Nucleated RBC % Immature Gran # Segmented Neutrophils Lymphocytes Monocytes Nucleated RBCs # Platelet Estimate Giant Platelets Hypochromasia Elliptocytes INR PT Patient/Control Mix Circ Anticoag PTT Patient Temperature 37 37 ABG pH 7.363 ABG pH at Pt Temp 7.355 7.363 ABG pCO2 39.6 ABG pCO2 at Pt Temp 43.0 39.6 ABG pO2 301.0 H ABG pO2 at Pt Temp 40.4 301.0 ABG HCO3 22.2 ABG Total CO2 20.5 L ABG O2 Saturation 99.7 ABG Base Excess -2.6 L ABG Sodium 131 L 132 L VBG pH 7.355 VBG pCO2 43.0 VBG pO2 40.4 H VBG HCO3 22.8 L VBG Total CO2 22.3 VBG O2 Saturation 74.1 VBG Base Excess -1.5 L Hemoglobin 9.2 L 10.1 L Hematocrit 28.5 L 31.1 L Potassium 5.9 H 4.6 Glucose 206 H 190 H Ionized Calcium 1.24 FiO2 21.00 Sodium Chloride Carbon Dioxide Anion Gap BUN Creatinine GFR Calculation BUN/Creatinine Ratio POC Glucose Calculated Osmolality Calcium Venous Ioniz Calcium 1.09 L Magnesium Total Bilirubin Direct Bilirubin AST ALT Alkaline Phosphatase Total Creatine Kinase CK-MB (CK-2) CK and CKMB Interp Troponin I Total Protein Albumin Globulin Albumin/Globulin Ratio Urine Color Urine Appearance Urine pH Ur Specific [place] Urine Protein Urine Glucose (UA) Urine Ketones Urine Blood Urine Nitrate Urine Bilirubin Urine Urobilinogen Urine Leukocytes Urine WBC Urine Mucus Ur Culture Indicated? Blood Type Antibody Screen Crossmatch 12/26/16 12/26/16 12/26/16 11:15 11:15 11:15 WBC 5.7 RBC 3.85 Hgb 11.5 L D Hct 34.6 L MCV 89.9 MCH 30 MCHC 33.2 RDW 15.0 Plt Count 133 D MPV 11.7 Neut % (Auto) 75.9 H Lymph % (Auto) 12.3 L [place] % (Auto) 9.5 Eos % (Auto) 1.4 Baso % (Auto) 0.4 Neut # (Auto) 4.3 Lymph # (Auto) 0.7 L [place] # (Auto) 0.5 Eos # (Auto) 0.1 Baso # (Auto) 0.0 Total Counted Immature Gran % 0.5 Nucleated RBC % 0.0 Immature Gran # 0.03 Segmented Neutrophils Lymphocytes Monocytes Nucleated RBCs # 0.00 Platelet Estimate Giant Platelets Hypochromasia Elliptocytes INR 1.2 PT Patient/Control Mix 13.0 Circ Anticoag PTT 27.9 Patient Temperature ABG pH ABG pH at Pt Temp ABG pCO2 ABG pCO2 at Pt Temp ABG pO2 ABG pO2 at Pt Temp ABG HCO3 ABG Total CO2 ABG O2 Saturation ABG Base Excess ABG Sodium VBG pH VBG pCO2 VBG pO2 VBG HCO3 VBG Total CO2 VBG O2 Saturation VBG Base Excess Hemoglobin Hematocrit Potassium 4.6 Glucose 131 H Ionized Calcium FiO2 Sodium 141 Chloride 107 Carbon Dioxide 21 Anion Gap 17.6 H BUN 27 H Creatinine 1.40 H GFR Calculation 80 BUN/Creatinine Ratio 19.00 POC Glucose Calculated Osmolality 287.3 Calcium 8.9 Venous Ioniz Calcium Magnesium 2.2 Total Bilirubin 1.40 H Direct Bilirubin AST 37 ALT 18 Alkaline Phosphatase 42 L Total Creatine Kinase CK-MB (CK-2) CK and CKMB Interp Troponin I Total Protein 5.6 L Albumin 3.2 L Globulin 2.4 Albumin/Globulin Ratio 1.3 Urine Color Urine Appearance Urine pH Ur Specific [place] Urine Protein Urine Glucose (UA) Urine Ketones Urine Blood Urine Nitrate Urine Bilirubin Urine Urobilinogen Urine Leukocytes Urine WBC Urine Mucus Ur Culture Indicated? Blood Type Antibody Screen Crossmatch 12/26/16 12/26/16 12/26/16 11:15 11:15 13:43 WBC RBC Hgb Hct MCV MCH MCHC RDW Plt Count MPV Neut % (Auto) Lymph % (Auto) [place] % (Auto) Eos % (Auto) Baso % (Auto) Neut # (Auto) Lymph # (Auto) [place] # (Auto) Eos # (Auto) Baso # (Auto) Total Counted Immature Gran % Nucleated RBC % Immature Gran # Segmented Neutrophils Lymphocytes Monocytes Nucleated RBCs # Platelet Estimate Giant Platelets Hypochromasia Elliptocytes INR PT Patient/Control Mix Circ Anticoag PTT Patient Temperature ABG pH 7.452 H ABG pH at Pt Temp ABG pCO2 31.3 L ABG pCO2 at Pt Temp ABG pO2 112.0 H ABG pO2 at Pt Temp ABG HCO3 23.4 ABG Total CO2 19.3 L ABG O2 Saturation 98.4 ABG Base Excess -1.2 ABG Sodium VBG pH VBG pCO2 VBG pO2 VBG HCO3 VBG Total CO2 VBG O2 Saturation VBG Base Excess Hemoglobin 12.0 L Hematocrit 37.1 L Potassium 4.4 Glucose 138 H Ionized Calcium FiO2 Sodium Chloride Carbon Dioxide Anion Gap BUN Creatinine GFR Calculation BUN/Creatinine Ratio POC Glucose 130 H Calculated Osmolality Calcium Venous Ioniz Calcium Magnesium Total Bilirubin Direct Bilirubin AST ALT Alkaline Phosphatase Total Creatine Kinase 225 CK-MB (CK-2) 13.8 H CK and CKMB Interp 6.1 Troponin I 3.000 H Total Protein Albumin Globulin Albumin/Globulin Ratio Urine Color Urine Appearance Urine pH Ur Specific [place] Urine Protein Urine Glucose (UA) Urine Ketones Urine Blood Urine Nitrate Urine Bilirubin Urine Urobilinogen Urine Leukocytes Urine WBC Urine Mucus Ur Culture Indicated? Blood Type Antibody Screen Crossmatch 12/26/16 12/26/16 12/26/16 16:00 18:06 18:24 WBC RBC Hgb Hct MCV MCH MCHC RDW Plt Count MPV Neut % (Auto) Lymph % (Auto) [place] % (Auto) Eos % (Auto) Baso % (Auto) Neut # (Auto) Lymph # (Auto) [place] # (Auto) Eos # (Auto) Baso # (Auto) Total Counted Immature Gran % Nucleated RBC % Immature Gran # Segmented Neutrophils Lymphocytes Monocytes Nucleated RBCs # Platelet Estimate Giant Platelets Hypochromasia Elliptocytes INR PT Patient/Control Mix Circ Anticoag PTT Patient Temperature ABG pH 7.414 7.415 ABG pH at Pt Temp ABG pCO2 36.1 34.9 L ABG pCO2 at Pt Temp ABG pO2 208.0 H 103.0 H ABG pO2 at Pt Temp ABG HCO3 23.6 23.1 ABG Total CO2 20.3 L 19.8 L ABG O2 Saturation 99.5 98.1 ABG Base Excess -1.0 -1.6 ABG Sodium VBG pH VBG pCO2 VBG pO2 VBG HCO3 VBG Total CO2 VBG O2 Saturation VBG Base Excess Hemoglobin 12.3 L 12.0 L Hematocrit 37.7 L 37.0 L Potassium 4.9 6.5 H* Glucose 175 H 185 H Ionized Calcium FiO2 Sodium Chloride Carbon Dioxide Anion Gap BUN Creatinine GFR Calculation BUN/Creatinine Ratio POC Glucose Calculated Osmolality Calcium Venous Ioniz Calcium Magnesium Total Bilirubin Direct Bilirubin AST ALT Alkaline Phosphatase Total Creatine Kinase 307 D CK-MB (CK-2) 27.5 H D CK and CKMB Interp 9.0 Troponin I 5.420 H D Total Protein Albumin Globulin Albumin/Globulin Ratio Urine Color Urine Appearance Urine pH Ur Specific [place] Urine Protein Urine Glucose (UA) Urine Ketones Urine Blood Urine Nitrate Urine Bilirubin Urine Urobilinogen Urine Leukocytes Urine WBC Urine Mucus Ur Culture Indicated? Blood Type Antibody Screen Crossmatch 12/26/16 12/26/16 12/26/16 18:24 19:57 21:58 WBC RBC Hgb Hct MCV MCH MCHC RDW Plt Count MPV Neut % (Auto) Lymph % (Auto) [place] % (Auto) Eos % (Auto) Baso % (Auto) Neut # (Auto) Lymph # (Auto) [place] # (Auto) Eos # (Auto) Baso # (Auto) Total Counted Immature Gran % Nucleated RBC % Immature Gran # Segmented Neutrophils Lymphocytes Monocytes Nucleated RBCs # Platelet Estimate Giant Platelets Hypochromasia Elliptocytes INR PT Patient/Control Mix Circ Anticoag PTT Patient Temperature ABG pH 7.425 7.383 ABG pH at Pt Temp ABG pCO2 33.4 L 38.5 ABG pCO2 at Pt Temp ABG pO2 124.0 H 138.0 H ABG pO2 at Pt Temp ABG HCO3 22.9 22.9 ABG Total CO2 19.4 L 20.4 L ABG O2 Saturation 99.0 99.1 ABG Base Excess -1.8 -1.8 ABG Sodium VBG pH VBG pCO2 VBG pO2 VBG HCO3 VBG Total CO2 VBG O2 Saturation VBG Base Excess Hemoglobin 11.7 L 11.8 L Hematocrit 36.1 L 36.4 L Potassium 4.6 4.3 4.4 Glucose 185 H 185 H Ionized Calcium FiO2 Sodium Chloride Carbon Dioxide Anion Gap BUN Creatinine GFR Calculation BUN/Creatinine Ratio POC Glucose Calculated Osmolality Calcium Venous Ioniz Calcium Magnesium Total Bilirubin Direct Bilirubin AST ALT Alkaline Phosphatase Total Creatine Kinase CK-MB (CK-2) CK and CKMB Interp Troponin I Total Protein Albumin Globulin Albumin/Globulin Ratio Urine Color Urine Appearance Urine pH Ur Specific [place] Urine Protein Urine Glucose (UA) Urine Ketones Urine Blood Urine Nitrate Urine Bilirubin Urine Urobilinogen Urine Leukocytes Urine WBC Urine Mucus Ur Culture Indicated? Blood Type Antibody Screen Crossmatch 12/26/16 12/27/16 12/27/16 23:56 01:27 03:48 WBC RBC Hgb Hct MCV MCH MCHC RDW Plt Count MPV Neut % (Auto) Lymph % (Auto) [place] % (Auto) Eos % (Auto) Baso % (Auto) Neut # (Auto) Lymph # (Auto) [place] # (Auto) Eos # (Auto) Baso # (Auto) Total Counted Immature Gran % Nucleated RBC % Immature Gran # Segmented Neutrophils Lymphocytes Monocytes Nucleated RBCs # Platelet Estimate Giant Platelets Hypochromasia Elliptocytes INR PT Patient/Control Mix Circ Anticoag PTT Patient Temperature ABG pH 7.377 7.349 L ABG pH at Pt Temp ABG pCO2 38.9 42.4 ABG pCO2 at Pt Temp ABG pO2 108.0 H 110.0 H ABG pO2 at Pt Temp ABG HCO3 22.7 22.5 ABG Total CO2 20.3 L 20.9 L ABG O2 Saturation 98.2 98.2 ABG Base Excess -2.0 -2.2 ABG Sodium VBG pH VBG pCO2 VBG pO2 VBG HCO3 VBG Total CO2 VBG O2 Saturation VBG Base Excess Hemoglobin 11.9 L 11.6 L Hematocrit 36.8 L 35.8 L Potassium 4.7 4.5 Glucose 176 H 175 H Ionized Calcium FiO2 Sodium Chloride Carbon Dioxide Anion Gap BUN Creatinine GFR Calculation BUN/Creatinine Ratio POC Glucose Calculated Osmolality Calcium Venous Ioniz Calcium Magnesium Total Bilirubin Direct Bilirubin AST ALT Alkaline Phosphatase Total Creatine Kinase 320 H CK-MB (CK-2) 27.7 H CK and CKMB Interp 8.7 Troponin I 6.400 H Total Protein Albumin Globulin Albumin/Globulin Ratio Urine Color Urine Appearance Urine pH Ur Specific [place] Urine Protein Urine Glucose (UA) Urine Ketones Urine Blood Urine Nitrate Urine Bilirubin Urine Urobilinogen Urine Leukocytes Urine WBC Urine Mucus Ur Culture Indicated? Blood Type Antibody Screen Crossmatch 12/27/16 12/27/16 12/27/16 03:48 03:48 03:57 WBC 11.1 D RBC 3.81 Hgb 11.3 L Hct 34.3 L MCV 90.0 MCH 30 MCHC 32.9 RDW 15.0 Plt Count 124 L MPV 12.1 H Neut % (Auto) 90.7 H Lymph % (Auto) 4.1 L [place] % (Auto) 4.6 Eos % (Auto) 0.0 Baso % (Auto) 0.1 Neut # (Auto) 10.1 H Lymph # (Auto) 0.5 L [place] # (Auto) 0.5 Eos # (Auto) 0.0 Baso # (Auto) 0.0 Total Counted 100 Immature Gran % 0.5 Nucleated RBC % 0.0 Immature Gran # 0.06 Segmented Neutrophils 90 H Lymphocytes 6 L Monocytes 4 Nucleated RBCs # 0.00 Platelet Estimate Normal Giant Platelets Few Hypochromasia 1+ Elliptocytes Few INR PT Patient/Control Mix Circ Anticoag PTT Patient Temperature ABG pH 7.330 L ABG pH at Pt Temp ABG pCO2 44.9 ABG pCO2 at Pt Temp ABG pO2 98.4 H ABG pO2 at Pt Temp ABG HCO3 22.4 ABG Total CO2 21.3 L ABG O2 Saturation 97.4 ABG Base Excess -2.4 ABG Sodium VBG pH VBG pCO2 VBG pO2 VBG HCO3 VBG Total CO2 VBG O2 Saturation VBG Base Excess Hemoglobin 11.6 L Hematocrit 35.8 L Potassium 4.6 4.4 Glucose 168 H 174 H Ionized Calcium FiO2 Sodium 142 Chloride 108 H Carbon Dioxide 24 Anion Gap 14.6 BUN 30 H Creatinine 1.30 GFR Calculation 87 BUN/Creatinine Ratio 23.00 H POC Glucose Calculated Osmolality 292.1 Calcium 9.0 Venous Ioniz Calcium Magnesium 2.4 Total Bilirubin 1.50 H Direct Bilirubin 0.3 H AST 50 H ALT 21 Alkaline Phosphatase 42 L Total Creatine Kinase CK-MB (CK-2) CK and CKMB Interp Troponin I Total Protein 5.9 L Albumin 3.7 Globulin 2.2 L Albumin/Globulin Ratio 1.6 Urine Color Urine Appearance Urine pH Ur Specific [place] Urine Protein Urine Glucose (UA) Urine Ketones Urine Blood Urine Nitrate Urine Bilirubin Urine Urobilinogen Urine Leukocytes Urine WBC Urine Mucus Ur Culture Indicated? Blood Type Antibody Screen Crossmatch Quality Measures - VTE Contraindication to Pharmacological VTE Prophylaxis: High Risk of Bleeding
[2016-12-27] MEDS ORDERED: ONDANSETRON 4 MG/2 ML VIAL IV PRN (06:00)
[2016-12-27] MEDS ORDERED: GLUCAGON 1 MG VIAL IM PRN ×2 (06:00→11:27)
[2016-12-27] MEDS ORDERED: MORPHINE 2 MG/1 ML SYRINGE IV PRN (06:00)
[2016-12-27] MEDS ORDERED: MAGNESIUM SULF RIDER 4 GM in PREMIX 1 EACH IV PRN (06:00)
[2016-12-27] MEDS ORDERED: DEXTROSE 50% 25 GM/50 ML VIAL IV PRN ×2 (06:00→11:27)
[2016-12-27] MEDS ORDERED: POTASSIUM CHLORIDE 20 MEQ TABLET PO PRN (06:00)
[2016-12-27] MEDS ORDERED: MAGNESIUM HYDROXIDE SUSP 30 ML UDCUP PO PRN (06:00)
[2016-12-27] MEDS ORDERED: ZALEPLON 5 MG CAPSULE PO PRN (06:00)
[2016-12-27] MEDS ORDERED: MAGNESIUM SULF RIDER 2 GM in PREMIX 1 EACH IV PRN (06:00)
[2016-12-27] MEDS ORDERED: ACETAMINOPHEN 325 MG TABLET PO PRN (06:00)
[2016-12-27] MEDS: SODIUM CHLOR 0.45% KCL 20 MEQ 20 MEQ/1,000 ML BAG IV SCH (06:12)
[2016-12-27] MEDS: KETOROLAC 30 MG/1 ML VIAL IV SCH ×4 (06:13→23:40)
[2016-12-27] MEDS: oxyCODONE/ACETAMINOPHEN 5-325 MG TABLET PO PRN (07:10)
--- NOTE | 2016-12-27 07:11 | EKG Report ---
Stationary ECG Study [facility] Test Date: 12/27/2016 7:11:50 AM Pat Name: SUSHMA CASTRO Department: Room: 104 Gender: M Instructional Writer: CARMELLA : 1950 Requested by: Vicente Mckinney Order Number: [id number] Reading MD: MARIA C DORSEY Intervals [place] Rate: 89 P: 37 ID: [id number] QRS: 0 QRSD: 118 T: 83 QT: 384 QTc: 431 Interpretive Statements SINUS RHYTHM SEPTAL MYOCARDIAL INFARCTION, PROBABLY OLD IF PRESENT Electronically Signed On 12-27-16 17:39:49 SENIOR PHYSICAL THERAPIST by MARIA C DORSEY [email or web address]
--- NOTE | 2016-12-27 07:49 | XRay Report ---
History: Postop thoracic surgery. Chest tube removal. Evaluate for pneumothorax Date: 12/27/2016 Study: Chest x-ray AP portable Comparison exam: 12/26/2016 The endotracheal and nasogastric tubes have been removed. The right IJ central line is in stable satisfactory position. No pneumothorax is seen. There is continued cardiomegaly. The mediastinal contour is stable in this patient status post median sternotomy. The pulmonary vasculature is upper normal. There is some continued patchy and hazy parenchymal disease in the lower lungs which may represent a combination of residual pulmonary edema and atelectasis. This is perhaps slightly improved. There is no obvious new or worsening pulmonary process. There is mild bilateral pleural effusion, the same or improved. Osseous structures are unchanged. Impression: There is no evidence of a pneumothorax. Interval extubation and nasogastric tube removal. Mildly improved aeration in the lung bases compared to the previous study PROCEDURE INTERPRETED AT [facility] DEPARTMENT OF RADIOLOGY Final Report Signed by: Dr. Darling Boyd
[2016-12-27] MEDS: CITALOPRAM 20 MG TABLET PO SCH (09:23)
[2016-12-27] MEDS: ATORVASTATIN 10 MG TABLET PO SCH (09:24)
[2016-12-27] MEDS: BENAZEPRIL 40 MG TABLET PO SCH (09:24)
[2016-12-27] MEDS: CHLORHEXIDINE 0.12% ORAL RINSE 60 ML BOTTLE SWISH/SPIT SCH ×2 (09:24→20:51)
[2016-12-27] MEDS: CHOLECALCIFEROL 1,000 UNIT TABLET PO SCH (09:24)
[2016-12-27] MEDS: DOCUSATE SODIUM 100 MG CAPSULE PO SCH (09:24)
[2016-12-27] MEDS: ASPIRIN EC 325 MG TABLET PO SCH (09:24)
[2016-12-27] MEDS: PANTOPRAZOLE 40 MG TABLET PO SCH (09:24)
[2016-12-27] MEDS: TRIAMTERENE/HCTZ 37.5-25 MG TABLET PO SCH (09:24)
[2016-12-27] MEDS: FERROUS SULFATE 325 MG TABLET PO SCH (09:24)
--- NOTE | 2016-12-27 12:10 | Hospitalist Consult Note ---
<Lesli Leonda - Last Filed: 12/27/16 12:16> Assessment and Plan - Time spent with patient Time spent with patient: Less than 30 minutes (1) Hyperglycemia, unspecified Status: Acute Assessment and plan: Will initiate sliding scale coverage with accuchecks and obtain HGA1C. Will request Diabetes education and dietary consult to assist in the management of this patient. Current Visit: Yes History of Present Illness - Data of Consult Patient: new to practice Consult date: 12/27/16 Requesting Physician: Vicente Zavala - Consult Narrative Reason for consult: Elevated blood gluocse levels post-operative History of present illness: This is a 66 middle aged male that was transferred from [facility] for a bypass referral. He presented to [facility] with a chief compliant of substernal chest pain. He underwent cardiac cathetherization which revealed critical left main coronary disease; in which he underwent coronary artery bypass under the direction of Dr. Jhonny Zavala on 12/26. He was noted to have moderate elevations in his blood glucose levels post-operatively; in which were consulted to assist in the management of this issue. CC: Vicente Zavala MD - Home Medications and Allergies Home Medications: Home Medications Medication Instructions Recorded Confirmed Type Atorvastatin Calcium 10 mg PO DAILY 12/21/16 12/21/16 History Benazepril [Lotensin] 40 mg PO DAILY 12/21/16 12/21/16 History Cholecalciferol (Vitamin D3) 5,000 unit PO DAILY 12/21/16 12/21/16 History [Vitamin D3] Citalopram Hydrobromide 20 mg PO DAILY 12/21/16 12/21/16 History [Citalopram HBr] Furosemide [Furosemide] 40 mg PO DAILY 12/21/16 12/21/16 History Triamterene/Hydrochlorothiazid 1 tablet PO DAILY 12/21/16 12/21/16 History [Triamterene-Hctz 37.5-25 mg Tb] hydrALAZINE TAB [Apresoline Tab] 50 mg PO TID 12/21/16 12/21/16 History Allergies/Adverse Reactions: Allergies Allergy/AdvReac Type Severity Reaction Status Date / Time No Known Allergies Allergy Verified 12/21/16 15:43 Medical,Surgical,& Family Hx - Medical History Cardio: History of: Hypertension Neurology: No history of: Seizures Endocrine: History of: Dyslipidemia - Surgical History Cardiac Surgeries: Sugical HX of: Cardiac Catheterization (12-20-16) - Family History Family History: Reports;: Family Cancer, Family Diabetes, Family Heart Disease, Family Hypertension, Family Stroke - Social History Smoking Status: Never smoker Frequency of Alcohol Use: None Type of Drug Use: None Marital Status: Single Lives With:: Alone Functional capacity: independent ambulation Exam - Constitutional Vitals: Period Temp Pulse Resp BP Sys/Lobo Pulse Ox Last 24 Hr 97.4 F-98.5 F 80-94 8-16 104-136/49-97 93-98 General appearance: no acute distress, morbidly obese - Head Head exam: Present: normal inspection, normocephalic, atraumatic - Eye Eye exam: Present: EOMI. Absent: conjunctival injection, nystagmus, periorbital swelling Pupils: Present: ANYA, normal accommodation - Neck Neck exam: Present: normal inspection. Absent: lymphadenopathy, tenderness, thyromegaly - Respiratory Respiratory exam: Present: decreased breath sounds. Absent: rales, rhonchi, stridor, wheezes - Cardiovascular Cardiovascular exam: Present: regular rate and rhythm. Absent: diastolic murmur , gallop, JVD, rubs, systolic murmur - GI/Abdominal GI/Abdominal exam: Present: normal bowel sounds, soft (obese; round) - Extremities Exam Extremities exam: Present: normal inspection, full ROM - Back Exam Back exam: Present: normal inspection - Neurological Exam Neurological exam: Present: alert, oriented X3 - Psychiatric Psychiatric exam: Present: normal affect - Skin Skin exam: Present: normal color, warm, dry Results - Labs CBC & BMP: 12/27/16 03:57 12/27/16 03:48 Lab Results: I have reviewed the past 24 hour labs Quality Measures - VTE Contraindication to Pharmacological VTE Prophylaxis: High Risk of Bleeding Specialty Discharge - Follow Up or Referrals <Shelby Bates - Last Filed: 12/27/16 15:52> History of Present Illness - Consult Narrative History of present illness: Mr. Choi is a 66 year old male I have seen and examined and agree with the plan as outlined in orders and this consult. CC: Vicente Zavala MD Exam - Constitutional Vitals: Period Temp Pulse Resp BP Sys/Lobo Pulse Ox Last 24 Hr 97.0 F-98.3 F 80-95 8-18 104-124/49-68 93-97 Results - Labs CBC & BMP: 12/27/16 03:57 12/27/16 03:48
[2016-12-28] MEDS: oxyCODONE/ACETAMINOPHEN 5-325 MG TABLET PO PRN ×5 (05:21→21:17)
[2016-12-28 05:40] LABS: Basophils % 0.1 % (0.0-0.8); Hematocrit 33.5 VOL% (42.0-52.0); Hemoglobin 10.9 GM/DL (14.0-18.0); Immature Granulocytes % 0.4 %; Immature Granulocytes Absolute 0.05 #; Lymphocytes # 0.8 10*3/uL (1.4-4.0); Lymphocytes % 5.9 % (21.2-54.2); Mean Corpuscular HGB Conc 32.5 GM/DL (32-36); Mean Corpuscular Hemoglobin 30 PG (27-34); Mean Corpuscular Volume 92.5 FL (87-102); Mean Platelet Volume 11.8 FL (9.6-12.0); Monocytes # 1.3 10*3/uL (0.11-0.8); Monocytes % 10.4 % (1.7-12.7); Neutrophils # 10.6 10*3/uL (1.4-7.4); Neutrophils % 83.2 % (38.7-73.9); Platelet Count 110 T/CUMM (130-400); Red Blood Count 3.62 MC/CUMM (3.8-5.5); Red Cell Distribution Width 14.9 % (9.3-17.3); White Blood Count 12.8 T/CUMM (4-12)
[2016-12-28] MEDS: SODIUM CHLOR 0.45% KCL 20 MEQ 20 MEQ/1,000 ML BAG IV SCH (05:41)
[2016-12-28] MEDS: KETOROLAC 30 MG/1 ML VIAL IV SCH ×3 (05:41→17:26)
[2016-12-28] MEDS ORDERED: FUROSEMIDE 40 MG/4 ML VIAL IV ONE (06:00)
[2016-12-28 06:14] LABS: Albumin 3.1 G/DL (3.4-5.0); Bilirubin,Direct 0.2 MG/DL (0.0-0.20); Bilirubin,Indirect 0.5 MG/DL (0.0-1.0); Bilirubin,Total 0.7 MG/DL (0.2-1.0); CKMB % 1.6 %; Magnesium 2.4 MG/DL (1.8-2.4); Osmolality,Calculated 291.1 MOS/KG (273-304); Potassium 4.8 MMOL/L (3.5-5.1); Total Protein 5.6 G/DL (6.4-8.3)
[2016-12-28 06:15] LABS: Troponin I Only 2.68 NG/ML (0.00-0.045)
--- NOTE | 2016-12-28 06:35 | Cardiothoracic Progress Note ---
Cardiothoracic Subjective Interval history: Isn't looks and feels okay. He does have a customary postoperative chest soreness. He is breathing comfortably and his vital signs are stable. Exam (Progress Note) - Constitutional Vitals: Period Temp Pulse Resp BP Sys/Lobo Pulse Ox Last 24 Hr 97.0 F-98.3 F 73-95 16-20 97-140/42-72 93-96 Result/EKG - Labs CBC & BMP: 12/28/16 05:37 12/28/16 05:37 Labs: Laboratory Results - last 24 hr 12/25/16 12/27/16 12/27/16 11:30 08:31 11:52 WBC RBC Hgb Hct MCV MCH MCHC RDW Plt Count MPV Neut % (Auto) Lymph % (Auto) [place] % (Auto) Eos % (Auto) Baso % (Auto) Neut # (Auto) Lymph # (Auto) [place] # (Auto) Eos # (Auto) Baso # (Auto) Immature Gran % Nucleated RBC % Immature Gran # Nucleated RBCs # Sodium Potassium Chloride Carbon Dioxide Anion Gap BUN Creatinine GFR Calculation BUN/Creatinine Ratio Glucose POC Glucose 166 H Hemoglobin A1c 4.5 Calculated Osmolality Calcium Magnesium Total Bilirubin Direct Bilirubin Indirect Bilirubin AST ALT Alkaline Phosphatase Total Creatine Kinase CK-MB (CK-2) CK and CKMB Interp Troponin I Total Protein Albumin Globulin Albumin/Globulin Ratio Blood Type A POSITIVE Antibody Screen Negative Crossmatch See Detail 12/27/16 12/27/16 12/28/16 15:12 19:40 05:37 WBC 12.8 H RBC 3.62 L Hgb 10.9 L Hct 33.5 L MCV 92.5 MCH 30 MCHC 32.5 RDW 14.9 Plt Count 110 L MPV 11.8 Neut % (Auto) 83.2 H Lymph % (Auto) 5.9 L [place] % (Auto) 10.4 Eos % (Auto) 0.0 Baso % (Auto) 0.1 Neut # (Auto) 10.6 H Lymph # (Auto) 0.8 L [place] # (Auto) 1.3 H Eos # (Auto) 0.0 Baso # (Auto) 0.0 Immature Gran % 0.4 Nucleated RBC % 0.0 Immature Gran # 0.05 Nucleated RBCs # 0.00 Sodium Potassium Chloride Carbon Dioxide Anion Gap BUN Creatinine GFR Calculation BUN/Creatinine Ratio Glucose POC Glucose 137 H 206 H Hemoglobin A1c Calculated Osmolality Calcium Magnesium Total Bilirubin Direct Bilirubin Indirect Bilirubin AST ALT Alkaline Phosphatase Total Creatine Kinase CK-MB (CK-2) CK and CKMB Interp Troponin I Total Protein Albumin Globulin Albumin/Globulin Ratio Blood Type Antibody Screen Crossmatch 12/28/16 05:37 WBC RBC Hgb Hct MCV MCH MCHC RDW Plt Count MPV Neut % (Auto) Lymph % (Auto) [place] % (Auto) Eos % (Auto) Baso % (Auto) Neut # (Auto) Lymph # (Auto) [place] # (Auto) Eos # (Auto) Baso # (Auto) Immature Gran % Nucleated RBC % Immature Gran # Nucleated RBCs # Sodium 142 Potassium 4.8 Chloride 107 Carbon Dioxide 24 Anion Gap 15.8 H BUN 36 H Creatinine 1.20 GFR Calculation 99 BUN/Creatinine Ratio 30.00 H Glucose 120 H POC Glucose Hemoglobin A1c Calculated Osmolality 291.1 Calcium 8.0 L Magnesium 2.4 Total Bilirubin 0.70 Direct Bilirubin 0.2 Indirect Bilirubin 0.5 AST 58 H ALT 23 Alkaline Phosphatase 43 L Total Creatine Kinase 725 H D CK-MB (CK-2) 11.8 H D CK and CKMB Interp 1.6 Troponin I 2.680 H D Total Protein 5.6 L Albumin 3.1 L Globulin 2.5 Albumin/Globulin Ratio 1.2 Blood Type Antibody Screen Crossmatch Quality Measures - VTE Contraindication to Pharmacological VTE Prophylaxis: High Risk of Bleeding Specialty Discharge - Follow Up or Referrals
--- NOTE | 2016-12-28 06:39 | XRay Report ---
XR chest 1V portable Indication: Shortness of breath Comparison: Chest x-ray 12/27/2016 Technique: Portable AP chest was performed. Findings: Cardiomediastinal silhouette and sternal wires are stable. Chest is underpenetrated. Central vascular prominence suggesting pulmonary venous hypertension is stable. Multiple tubes and medical support devices appear stable. Lung bases demonstrate bibasilar peripheral opacities unchanged from comparison. Impression: 1. Pulmonary venous hypertensive changes are suggested. 2. Stable cardiomegaly. 3. Stable bibasilar peripheral opacities having differential considerations including atelectasis edema and infection. 12/28/2016 6:36 AM PROCEDURE INTERPRETED AT [facility] DEPARTMENT OF RADIOLOGY Final Report Signed by: Dr. Jeremiah Moran
[2016-12-28] MEDS: FERROUS SULFATE 325 MG TABLET PO SCH (08:46)
[2016-12-28] MEDS: PANTOPRAZOLE 40 MG TABLET PO SCH (08:47)
[2016-12-28] MEDS: CITALOPRAM 20 MG TABLET PO SCH (08:47)
[2016-12-28] MEDS: DOCUSATE SODIUM 100 MG CAPSULE PO SCH (08:47)
[2016-12-28] MEDS: ATORVASTATIN 10 MG TABLET PO SCH (08:47)
[2016-12-28] MEDS: CHOLECALCIFEROL 1,000 UNIT TABLET PO SCH (08:47)
[2016-12-28] MEDS: ASPIRIN EC 325 MG TABLET PO SCH (08:48)
[2016-12-28] MEDS: TRIAMTERENE/HCTZ 37.5-25 MG TABLET PO SCH (08:49)
[2016-12-28] MEDS: CHLORHEXIDINE 0.12% ORAL RINSE 60 ML BOTTLE SWISH/SPIT SCH ×2 (08:49→21:18)
[2016-12-28] MEDS: BENAZEPRIL 40 MG TABLET PO SCH (08:50)
[2016-12-28] MEDS: INSULIN REGULAR 100 UNIT/ML SUBCUT SCH ×4 (09:49→21:18)
--- NOTE | 2016-12-28 11:30 | Hospitalist Progress Note ---
<EdwardRoland - Last Filed: 12/28/16 11:31> Assessment and Plan (1) Hyperglycemia, unspecified Status: Acute Assessment and plan: HGA1C 4.5. We will continue sliding scale as previously ordered. Current Visit: Yes Hospitalist: Subjective Interval history: Patient seen and examined. No issues overnight. Blood glucose levels remain mildly elevated. Exam - Constitutional Vitals: Period Temp Pulse Resp BP Sys/Lobo Pulse Ox Last 24 Hr 97.0 F-98.3 F 73-95 16-20 97-140/42-72 93-96 General appearance: no acute distress, morbidly obese - Head Head exam: Present: normal inspection, normocephalic, atraumatic - Eye Eye exam: Present: EOMI Pupils: Present: ANYA, normal accommodation - ENT ENT exam: Present: normal exam - Neck Neck exam: Present: normal inspection. Absent: lymphadenopathy, meningismus, tenderness, thyromegaly - Respiratory Respiratory exam: Present: decreased breath sounds. Absent: rales, rhonchi, stridor, wheezes - Cardiovascular Cardiovascular exam: Present: regular rate and rhythm. Absent: diastolic murmur , gallop, JVD, rubs, systolic murmur, tachycardia - GI/Abdominal GI/Abdominal exam: Present: normal bowel sounds, soft. Absent: guarding, tenderness - Extremities Exam Extremities exam: Present: normal inspection. Absent: edema - Back Exam Back exam: Present: normal inspection - Neurological Exam Neurological exam: Present: alert, oriented X3, CN II-XII intact - Psychiatric Psychiatric exam: Present: normal affect - Skin Skin exam: Present: normal color Results - Labs CBC & BMP: 12/28/16 05:37 12/28/16 05:37 Lab Results: I have reviewed the past 24 hour labs Quality Measures - VTE Contraindication to Pharmacological VTE Prophylaxis: High Risk of Bleeding Specialty Discharge - Follow Up or Referrals <Shelby Bates - Last Filed: 12/28/16 15:14> Exam - Constitutional Vitals: Period Temp Pulse Resp BP Sys/Lobo Pulse Ox Last 24 Hr 97.3 F-98.3 F 73-87 16-20 97-140/42-72 94-96 Results - Labs CBC & BMP: 12/28/16 05:37 12/28/16 05:37
[2016-12-29] MEDS: KETOROLAC 30 MG/1 ML VIAL IV SCH ×4 (00:09→17:12)
[2016-12-29 04:16] LABS: Eosinophils % 0.1 % (0.00-10.9); Hematocrit 31.8 VOL% (42.0-52.0); Hemoglobin 10.5 GM/DL (14.0-18.0); Immature Granulocytes % 0.6 %; Immature Granulocytes Absolute 0.05 #; Lymphocytes # 0.8 10*3/uL (1.4-4.0); Lymphocytes % 9.6 % (21.2-54.2); Mean Corpuscular Hemoglobin 30 PG (27-34); Mean Corpuscular Volume 90.1 FL (87-102); Mean Platelet Volume 12.2 FL (9.6-12.0); Monocytes # 1.2 10*3/uL (0.11-0.8); Monocytes % 14.7 % (1.7-12.7); Neutrophils # 6.1 10*3/uL (1.4-7.4); Platelet Count 125 T/CUMM (130-400); Red Blood Count 3.53 MC/CUMM (3.8-5.5); Red Cell Distribution Width 15.4 % (9.3-17.3); White Blood Count 8.1 T/CUMM (4-12)
[2016-12-29 05:06] LABS: Alanine Aminotransferase 26 U/L (16-61); Albumin 3.1 G/DL (3.4-5.0); Alkaline Phosphatase 44 U/L (45-117); Aspartate Amino Transferase 46 U/L (0-37); Bilirubin,Direct 0.2 MG/DL (0.0-0.20); Bilirubin,Indirect 1.1 MG/DL (0.0-1.0); Blood Urea Nitrogen 39 MG/DL (7-18); Calcium 8.4 MG/DL (8.5-10.1); Glucose 118 MG/DL (74-106); Magnesium 2.7 MG/DL (1.8-2.4); Osmolality,Calculated 290.3 MOS/KG (273-304); Potassium 4.9 MMOL/L (3.5-5.1); Sodium 141 MMOL/L (136-145); Total Protein 5.3 G/DL (6.4-8.3)
[2016-12-29] MEDS: oxyCODONE/ACETAMINOPHEN 5-325 MG TABLET PO PRN ×3 (05:22→21:50)
--- NOTE | 2016-12-29 07:57 | Pulmonology Progress Note ---
Pulmonary - PN: Subj Interval history: Patient without complaints this morning said he didn't need anything Exam (Progress Note) - Constitutional Vitals: Period Temp Pulse Resp BP Sys/Lobo Pulse Ox Last 24 Hr 97.2 F-98.5 F 73-85 18-20 98-129/45-61 95-96 Exam: Constitutional: General appearance is normal, obese Eyes: Pupils equal round react to light and accommodation conjunctiva and lids are normal Neck: supple without masses Respiratory: Respiratory effort is normal. Lungs are clear to auscultation. Resonant to percussion. Cardiac: Regular rate and rhythm without murmur rub or gallop. PMI at the midclavicular line by palpation. Carotid arteries 2+ palpation no bruits GI: Bowel sounds normoactive, no tenderness or rebound tenderness, no organomegaly Extremities: no clubbing cyanosis or edema Results - Labs CBC & BMP: 12/29/16 04:00 12/29/16 04:02 Assessment and Plan (1) Hyperglycemia, unspecified Status: Acute Assessment and plan: Sugars remain under reasonable control Current Visit: Yes Specialty Discharge - Follow Up or Referrals
--- NOTE | 2016-12-29 08:46 | Cardiothoracic Progress Note ---
Cardiothoracic Subjective Interval history: Impression looks and feels fine. His vital signs are stable and he is breathing comfortably. He is beginning to increase his ambulation according to routine postoperative protocol. Overall his progress seems satisfactory. Exam (Progress Note) - Constitutional Vitals: Period Temp Pulse Resp BP Sys/Lobo Pulse Ox Last 24 Hr 97.2 F-98.5 F 73-85 18-20 98-129/45-61 95-96 Result/EKG - Labs CBC & BMP: 12/29/16 04:00 12/29/16 04:02 Labs: Laboratory Results - last 24 hr 12/28/16 12/28/16 12/28/16 11:44 15:51 19:51 WBC RBC Hgb Hct MCV MCH MCHC RDW Plt Count MPV Neut % (Auto) Lymph % (Auto) [place] % (Auto) Eos % (Auto) Baso % (Auto) Neut # (Auto) Lymph # (Auto) [place] # (Auto) Eos # (Auto) Baso # (Auto) Immature Gran % Nucleated RBC % Immature Gran # Nucleated RBCs # Sodium Potassium Chloride Carbon Dioxide Anion Gap BUN Creatinine GFR Calculation BUN/Creatinine Ratio Glucose POC Glucose 97 116 H 120 H Calculated Osmolality Calcium Magnesium Total Bilirubin Direct Bilirubin Indirect Bilirubin AST ALT Alkaline Phosphatase Total Creatine Kinase CK-MB (CK-2) Troponin I Total Protein Albumin Globulin Albumin/Globulin Ratio 12/29/16 12/29/16 12/29/16 04:00 04:02 07:18 WBC 8.1 D RBC 3.53 L Hgb 10.5 L Hct 31.8 L MCV 90.1 MCH 30 MCHC 33.0 RDW 15.4 Plt Count 125 L MPV 12.2 H Neut % (Auto) 75.0 H Lymph % (Auto) 9.6 L [place] % (Auto) 14.7 H Eos % (Auto) 0.1 Baso % (Auto) 0.0 Neut # (Auto) 6.1 Lymph # (Auto) 0.8 L [place] # (Auto) 1.2 H Eos # (Auto) 0.0 Baso # (Auto) 0.0 Immature Gran % 0.6 Nucleated RBC % 0.0 Immature Gran # 0.05 Nucleated RBCs # 0.00 Sodium 141 Potassium 4.9 Chloride 105 Carbon Dioxide 26 Anion Gap 14.9 BUN 39 H Creatinine 1.20 GFR Calculation 99 BUN/Creatinine Ratio 32.00 H Glucose 118 H POC Glucose 105 Calculated Osmolality 290.3 Calcium 8.4 L Magnesium 2.7 H Total Bilirubin 1.30 H Direct Bilirubin 0.2 Indirect Bilirubin 1.1 H AST 46 H ALT 26 Alkaline Phosphatase 44 L Total Creatine Kinase 363 H D CK-MB (CK-2) 3.6 D Troponin I 1.750 H D Total Protein 5.3 L Albumin 3.1 L Globulin 2.2 L Albumin/Globulin Ratio 1.4 Quality Measures - VTE Contraindication to Pharmacological VTE Prophylaxis: High Risk of Bleeding Specialty Discharge - Follow Up or Referrals
[2016-12-29] MEDS: TRIAMTERENE/HCTZ 37.5-25 MG TABLET PO SCH (08:54)
[2016-12-29] MEDS: CHOLECALCIFEROL 1,000 UNIT TABLET PO SCH (08:54)
[2016-12-29] MEDS: BENAZEPRIL 40 MG TABLET PO SCH (08:54)
[2016-12-29] MEDS: CITALOPRAM 20 MG TABLET PO SCH (08:54)
[2016-12-29] MEDS: ATORVASTATIN 10 MG TABLET PO SCH (08:55)
[2016-12-29] MEDS: FERROUS SULFATE 325 MG TABLET PO SCH (08:55)
[2016-12-29] MEDS: PANTOPRAZOLE 40 MG TABLET PO SCH (08:55)
[2016-12-29] MEDS: DOCUSATE SODIUM 100 MG CAPSULE PO SCH (08:55)
[2016-12-29] MEDS: ASPIRIN EC 325 MG TABLET PO SCH (08:56)
--- NOTE | 2016-12-29 09:01 | XRay Report ---
Portable chest Date: 12/29/2016 Clinical history: Shortness of breath Comparison: 12/28/2016 Technique: Portable AP sitting chest Findings: Stable cardiomegaly with prior median sternotomy. Right IJ CVP line is stable in position. Reduced parenchymal findings in the lungs with smaller pleural effusions. Stable mediastinum and osseous structures. Impression: Post median sternotomy with reduced atelectasis/edema at lung bases with smaller pleural effusions. PROCEDURE INTERPRETED AT [facility] DEPARTMENT OF RADIOLOGY Final Report Signed by: Dr. Leeanne Auguste
--- NOTE | 2016-12-29 09:52 | Hospitalist Progress Note ---
Assessment and Plan (1) Hyperglycemia, unspecified Status: Acute Assessment and plan: Blood glucose levels are subtherapeutic; will continue sliding scale as previously ordered. Current Visit: Yes Exam - Constitutional Vitals: Period Temp Pulse Resp BP Sys/Lobo Pulse Ox Last 24 Hr 97.2 F-98.5 F 73-85 18-20 98-129/45-61 95-96 General appearance: normal weight, no acute distress - Head Head exam: Present: normal inspection, normocephalic, atraumatic. Absent: abrasion, contusion, hematoma - Eye Eye exam: Present: EOMI, conjunctival injection. Absent: periorbital swelling, scleral icterus, laceration to eyelids Pupils: Present: ANYA, normal accommodation - ENT ENT exam: Present: normal exam - Neck Neck exam: Present: normal inspection - Respiratory Respiratory exam: Present: clear to auscultation bilaterally. Absent: accessory muscle use, decreased breath sounds, rales, rhonchi, stridor - Cardiovascular Cardiovascular exam: Present: regular rate and rhythm. Absent: gallop, JVD, rubs, systolic murmur - GI/Abdominal GI/Abdominal exam: Present: normal bowel sounds, other (Round obese) - Extremities Exam Extremities exam: Present: normal inspection, full ROM - Neurological Exam Neurological exam: Present: alert, oriented X3, CN II-XII intact - Psychiatric Psychiatric exam: Present: normal affect - Skin Skin exam: Present: normal color Results - Labs CBC & BMP: 12/29/16 04:00 12/29/16 04:02 Lab Results: I have reviewed the past 24 hour labs Quality Measures - VTE Contraindication to Pharmacological VTE Prophylaxis: High Risk of Bleeding Specialty Discharge - Follow Up or Referrals
[2016-12-29] MEDS: INSULIN REGULAR 100 UNIT/ML SUBCUT SCH ×4 (10:05→21:53)
[2016-12-29] MEDS: CHLORHEXIDINE 0.12% ORAL RINSE 60 ML BOTTLE SWISH/SPIT SCH ×2 (10:17→21:53)
[2016-12-29] MEDS ORDERED: AMIODARONE INJ 150 MG in DEXTROSE 5% 100 ML IV ONE (18:09)
[2016-12-29] MEDS ORDERED: DILTIAZEM 50 MG/10 ML VIAL IV ONE (18:16)
[2016-12-29] MEDS ORDERED: AMIODARONE 450 MG/9 ML VIAL IV ONE (18:23)
[2016-12-29] MEDS ORDERED: AMIODARONE INJ 450 MG in DEXTROSE 5% 241 ML IV SCH (18:30)
[2016-12-29] MEDS: DILTIAZEM INJ 100 MG in SODIUM CHLORIDE 0.9% 100 ML IV SCH (18:36)
[2016-12-30] MEDS: KETOROLAC 30 MG/1 ML VIAL IV SCH
[2016-12-30] MEDS ORDERED: AMIODARONE INJ 450 MG in DEXTROSE 5% 241 ML IV SCH (00:30)
--- NOTE | 2016-12-30 08:20 | Cardiothoracic Progress Note ---
Cardiothoracic Subjective Interval history: Patient looks and feels okay. He is breathing comfortably and his vital signs have been stable other than the fact that he developed atrial fibrillation yesterday evening. He is presently on intravenous amiodarone and Cardizem and his ventricular response is controlled. We will continue intravenous amiodarone for now but if he does not convert relatively quickly he will need anticoagulation. Otherwise we will gradually increase his activity according to routine postoperative protocol. Exam (Progress Note) - Constitutional Vitals: Period Temp Pulse Resp BP Sys/Lobo Pulse Ox Last 24 Hr 96.9 F-98.2 F 73-84 18-20 110-153/52-67 93-96 Result/EKG - Labs CBC & BMP: 12/29/16 04:00 12/29/16 04:02 Labs: Laboratory Results - last 24 hr 12/29/16 12/29/16 12/29/16 07:18 11:33 15:59 POC Glucose 105 108 H 130 H 12/29/16 12/30/16 20:36 06:32 POC Glucose 124 H 106 Quality Measures - VTE Contraindication to Pharmacological VTE Prophylaxis: High Risk of Bleeding Specialty Discharge - Follow Up or Referrals
--- NOTE | 2016-12-30 08:51 | Hospitalist Progress Note ---
Assessment and Plan (1) Hyperglycemia, unspecified Status: Acute Assessment and plan: Sugars remain under reasonable control 12/30 no big issues patient continues to improve Current Visit: Yes Hospitalist: Subjective Interval history: Patient without complaints this morning Exam - Constitutional Vitals: Period Temp Pulse Resp BP Sys/Lobo Pulse Ox Last 24 Hr 96.9 F-98.2 F 73-84 16-20 110-153/52-75 93-96 Exam: Constitutional: General appearance is normal, obese Eyes: Pupils equal round react to light and accommodation conjunctiva and lids are normal Neck: supple without masses Respiratory: Respiratory effort is normal. Lungs are clear to auscultation. Resonant to percussion. Cardiac: Regular rate and rhythm without murmur rub or gallop. PMI at the midclavicular line by palpation. Carotid arteries 2+ palpation no bruits GI: Bowel sounds normoactive, no tenderness or rebound tenderness, no organomegaly Extremities: no clubbing cyanosis or edema Results - Labs CBC & BMP: 12/29/16 04:00 12/29/16 04:02 Quality Measures - VTE Contraindication to Pharmacological VTE Prophylaxis: High Risk of Bleeding Specialty Discharge - Follow Up or Referrals
[2016-12-30] MEDS: CITALOPRAM 20 MG TABLET PO SCH (10:04)
[2016-12-30] MEDS: CHOLECALCIFEROL 1,000 UNIT TABLET PO SCH (10:04)
[2016-12-30] MEDS: FERROUS SULFATE 325 MG TABLET PO SCH (10:05)
[2016-12-30] MEDS: ATORVASTATIN 10 MG TABLET PO SCH (10:05)
[2016-12-30] MEDS: TRIAMTERENE/HCTZ 37.5-25 MG TABLET PO SCH (10:05)
[2016-12-30] MEDS: oxyCODONE/ACETAMINOPHEN 5-325 MG TABLET PO PRN ×3 (10:06→21:10)
[2016-12-30] MEDS: DOCUSATE SODIUM 100 MG CAPSULE PO SCH (10:07)
[2016-12-30] MEDS: PANTOPRAZOLE 40 MG TABLET PO SCH (10:07)
[2016-12-30] MEDS: ASPIRIN EC 325 MG TABLET PO SCH (10:08)
[2016-12-30] MEDS: INSULIN REGULAR 100 UNIT/ML SUBCUT SCH ×4 (10:37→21:12)
[2016-12-30] MEDS: CHLORHEXIDINE 0.12% ORAL RINSE 60 ML BOTTLE SWISH/SPIT SCH ×2 (10:38→21:12)
[2016-12-30] MEDS: BENAZEPRIL 40 MG TABLET PO SCH (10:38)
[2016-12-30] MEDS: AMIODARONE INJ 450 MG in DEXTROSE 5% 241 ML IV SCH (15:48)
[2016-12-30] MEDS: DILTIAZEM INJ 100 MG in SODIUM CHLORIDE 0.9% 100 ML IV SCH (17:48)
[2016-12-31] MEDS: oxyCODONE/ACETAMINOPHEN 5-325 MG TABLET PO PRN ×3 (05:06→17:35)
[2016-12-31 05:12] LABS: Basophils % 0.2 % (0.0-0.8); Eosinophils # 0.3 10*3/uL (0.0-0.87); Hematocrit 34.6 VOL% (42.0-52.0); Hemoglobin 11.3 GM/DL (14.0-18.0); Immature Granulocytes % 0.5 %; Immature Granulocytes Absolute 0.05 #; Lymphocytes # 2.2 10*3/uL (1.4-4.0); Lymphocytes % 23.9 % (21.2-54.2); Mean Corpuscular HGB Conc 32.7 GM/DL (32-36); Mean Corpuscular Hemoglobin 30 PG (27-34); Mean Corpuscular Volume 92.3 FL (87-102); Mean Platelet Volume 11.7 FL (9.6-12.0); Monocytes % 10.7 % (1.7-12.7); Neutrophils # 5.8 10*3/uL (1.4-7.4); Neutrophils % 61.7 % (38.7-73.9); Platelet Count 168 T/CUMM (130-400); Red Blood Count 3.75 MC/CUMM (3.8-5.5); Red Cell Distribution Width 15.1 % (9.3-17.3); White Blood Count 9.3 T/CUMM (4-12)
[2016-12-31 05:46] LABS: Alanine Aminotransferase 23 U/L (16-61); Alkaline Phosphatase 44 U/L (45-117); Aspartate Amino Transferase 22 U/L (0-37); Bilirubin,Direct 0.2 MG/DL (0.0-0.20); Bilirubin,Indirect 0.5 MG/DL (0.0-1.0); Blood Urea Nitrogen 36 MG/DL (7-18); Calcium 8.7 MG/DL (8.5-10.1); Glucose 105 MG/DL (74-106); Magnesium 2.5 MG/DL (1.8-2.4); Potassium 4.5 MMOL/L (3.5-5.1); Sodium 143 MMOL/L (136-145); Total Protein 5.4 G/DL (6.4-8.3)
[2016-12-31 05:48] LABS: Troponin I Only 0.743 NG/ML (0.00-0.045)
[2016-12-31] MEDS: AMIODARONE INJ 450 MG in DEXTROSE 5% 241 ML IV SCH (06:03)
--- NOTE | 2016-12-31 06:36 | Cardiothoracic Progress Note ---
Cardiothoracic Subjective Interval history: Patient looks and feels okay. His vital signs are stable and he is breathing comfortably. He still having some serous drainage from his sternotomy at the lower end. His white count is normal and he is afebrile. Exam (Progress Note) - Constitutional Vitals: Period Temp Pulse Resp BP Sys/Lobo Pulse Ox Last 24 Hr 97.0 F-98.4 F 54-98 16-20 107-158/60-77 94-97 Result/EKG - Labs CBC & BMP: 12/31/16 05:05 12/31/16 05:05 Labs: Laboratory Results - last 24 hr 12/25/16 12/30/16 12/30/16 11:30 06:32 12:39 WBC RBC Hgb Hct MCV MCH MCHC RDW Plt Count MPV Neut % (Auto) Lymph % (Auto) [place] % (Auto) Eos % (Auto) Baso % (Auto) Neut # (Auto) Lymph # (Auto) [place] # (Auto) Eos # (Auto) Baso # (Auto) Immature Gran % Nucleated RBC % Immature Gran # Nucleated RBCs # Sodium Potassium Chloride Carbon Dioxide Anion Gap BUN Creatinine GFR Calculation BUN/Creatinine Ratio Glucose POC Glucose 106 107 H Calculated Osmolality Calcium Magnesium Total Bilirubin Direct Bilirubin Indirect Bilirubin AST ALT Alkaline Phosphatase Total Creatine Kinase CK-MB (CK-2) Troponin I Total Protein Albumin Globulin Albumin/Globulin Ratio Blood Type A POSITIVE Antibody Screen Negative Crossmatch See Detail 12/30/16 12/30/16 12/31/16 16:55 20:31 05:05 WBC 9.3 RBC 3.75 L Hgb 11.3 L Hct 34.6 L MCV 92.3 MCH 30 MCHC 32.7 RDW 15.1 Plt Count 168 D MPV 11.7 Neut % (Auto) 61.7 Lymph % (Auto) 23.9 [place] % (Auto) 10.7 Eos % (Auto) 3.0 Baso % (Auto) 0.2 Neut # (Auto) 5.8 Lymph # (Auto) 2.2 [place] # (Auto) 1.0 H Eos # (Auto) 0.3 Baso # (Auto) 0.0 Immature Gran % 0.5 Nucleated RBC % 0.0 Immature Gran # 0.05 Nucleated RBCs # 0.00 Sodium Potassium Chloride Carbon Dioxide Anion Gap BUN Creatinine GFR Calculation BUN/Creatinine Ratio Glucose POC Glucose 107 H 108 H Calculated Osmolality Calcium Magnesium Total Bilirubin Direct Bilirubin Indirect Bilirubin AST ALT Alkaline Phosphatase Total Creatine Kinase CK-MB (CK-2) Troponin I Total Protein Albumin Globulin Albumin/Globulin Ratio Blood Type Antibody Screen Crossmatch 12/31/16 05:05 WBC RBC Hgb Hct MCV MCH MCHC RDW Plt Count MPV Neut % (Auto) Lymph % (Auto) [place] % (Auto) Eos % (Auto) Baso % (Auto) Neut # (Auto) Lymph # (Auto) [place] # (Auto) Eos # (Auto) Baso # (Auto) Immature Gran % Nucleated RBC % Immature Gran # Nucleated RBCs # Sodium 143 Potassium 4.5 Chloride 107 Carbon Dioxide 27 Anion Gap 13.5 BUN 36 H Creatinine 1.20 GFR Calculation 99 BUN/Creatinine Ratio 30.00 H Glucose 105 POC Glucose Calculated Osmolality 292.0 Calcium 8.7 Magnesium 2.5 H Total Bilirubin 0.70 Direct Bilirubin 0.2 Indirect Bilirubin 0.5 AST 22 ALT 23 Alkaline Phosphatase 44 L Total Creatine Kinase 94 D CK-MB (CK-2) 1.9 Troponin I 0.743 H D Total Protein 5.4 L Albumin 3.0 L Globulin 2.4 Albumin/Globulin Ratio 1.2 Blood Type Antibody Screen Crossmatch Quality Measures - VTE Contraindication to Pharmacological VTE Prophylaxis: High Risk of Bleeding Specialty Discharge - Follow Up or Referrals
--- NOTE | 2016-12-31 08:13 | XRay Report ---
Exam: XR chest 2V Indication: Cardiomegaly Shortness of breath Comparison study: 12/29/2016 Findings: Critics silhouette is enlarged, similar to prior. Right chest/neck central venous catheter is in similar position. There has been slight worsening of basilar opacities and compared to prior. Otherwise, the cardiac silhouette and mediastinal contours appear stable. Median sternotomy wiring is again noted. There is no focal consolidation, pneumothorax or pleural effusion identified. Impression: Stable cardiomegaly, median sternotomy wiring and right-sided central venous catheter placement. Slight worsening of basilar opacities may represent developing atelectasis and/or pleural effusions. PROCEDURE INTERPRETED AT [facility] DEPARTMENT OF RADIOLOGY Final Report Signed by: Syd Felder
[2016-12-31] MEDS: DILTIAZEM INJ 100 MG in SODIUM CHLORIDE 0.9% 100 ML IV SCH ×2 (08:17→19:12)
[2016-12-31] MEDS: TRIAMTERENE/HCTZ 37.5-25 MG TABLET PO SCH (08:19)
[2016-12-31] MEDS: ATORVASTATIN 10 MG TABLET PO SCH (08:19)
[2016-12-31] MEDS: CITALOPRAM 20 MG TABLET PO SCH (08:19)
[2016-12-31] MEDS: BENAZEPRIL 40 MG TABLET PO SCH (08:19)
[2016-12-31] MEDS: CHOLECALCIFEROL 1,000 UNIT TABLET PO SCH (08:19)
[2016-12-31] MEDS: PANTOPRAZOLE 40 MG TABLET PO SCH (08:19)
[2016-12-31] MEDS: DOCUSATE SODIUM 100 MG CAPSULE PO SCH (08:19)
[2016-12-31] MEDS: ASPIRIN EC 325 MG TABLET PO SCH (08:19)
[2016-12-31] MEDS: FERROUS SULFATE 325 MG TABLET PO SCH (08:19)
[2016-12-31] MEDS: CHLORHEXIDINE 0.12% ORAL RINSE 60 ML BOTTLE SWISH/SPIT SCH ×2 (08:24→20:45)
[2016-12-31] MEDS: INSULIN REGULAR 100 UNIT/ML SUBCUT SCH ×4 (08:25→20:45)
[2016-12-31] MEDS ORDERED: AMIODARONE 200 MG TABLET PO SCH (12:00)
[2016-12-31] MEDS: DILTIAZEM CD 120 MG CAPSULE PO SCH (12:35)
--- NOTE | 2016-12-31 14:39 | Hospitalist Progress Note ---
Assessment and Plan (1) S/P CABG x 2 Status: Acute Current Visit: Yes (2) Hyperglycemia, unspecified Status: Acute Assessment and plan: blood sugars controlled Current Visit: Yes Hospitalist: Subjective Interval history: Patient's blood sugars are stable Exam - Constitutional Vitals: Period Temp Pulse Resp BP Sys/Lobo Pulse Ox Last 24 Hr 97.0 F-98.4 F 54-126 16-20 107-158/60-72 94-97 Exam: Heart Rate-[RRR] Lungs-[diminished] GI-[+bs soft, NT, obese] Results - Labs CBC & BMP: 12/31/16 05:05 12/31/16 05:05 Lab Results: I have reviewed the past 24 hour labs Quality Measures - VTE Contraindication to Pharmacological VTE Prophylaxis: High Risk of Bleeding Specialty Discharge - Follow Up or Referrals
[2016-12-31] MEDS: AMIODARONE 200 MG TABLET PO SCH (20:23)
[2017-01-01 04:23] LABS: Basophils % 0.2 % (0.0-0.8); Eosinophils # 0.4 10*3/uL (0.0-0.87); Eosinophils % 3.2 % (0.00-10.9); Hematocrit 36.1 VOL% (42.0-52.0); Hemoglobin 11.7 GM/DL (14.0-18.0); Immature Granulocytes % 1.2 %; Immature Granulocytes Absolute 0.15 #; Lymphocytes # 2.7 10*3/uL (1.4-4.0); Lymphocytes % 21.1 % (21.2-54.2); Mean Corpuscular HGB Conc 32.4 GM/DL (32-36); Mean Corpuscular Hemoglobin 30 PG (27-34); Mean Corpuscular Volume 91.4 FL (87-102); Mean Platelet Volume 11.2 FL (9.6-12.0); Monocytes # 1.5 10*3/uL (0.11-0.8); Monocytes % 12.1 % (1.7-12.7); Neutrophils # 7.9 10*3/uL (1.4-7.4); Neutrophils % 62.2 % (38.7-73.9); Platelet Count 214 T/CUMM (130-400); Red Blood Count 3.95 MC/CUMM (3.8-5.5); Red Cell Distribution Width 15.3 % (9.3-17.3); White Blood Count 12.7 T/CUMM (4-12)
[2017-01-01] MEDS: oxyCODONE/ACETAMINOPHEN 5-325 MG TABLET PO PRN ×4 (04:39→21:15)
[2017-01-01 05:03] LABS: Alanine Aminotransferase 21 U/L (16-61); Albumin 3.3 G/DL (3.4-5.0); Alkaline Phosphatase 47 U/L (45-117); Aspartate Amino Transferase 18 U/L (0-37); Bilirubin,Direct 0.2 MG/DL (0.0-0.20); Bilirubin,Indirect 0.9 MG/DL (0.0-1.0); Blood Urea Nitrogen 34 MG/DL (7-18); Calcium 9.1 MG/DL (8.5-10.1); Glucose 105 MG/DL (74-106); Osmolality,Calculated 288.3 MOS/KG (273-304); Potassium 4.3 MMOL/L (3.5-5.1); Sodium 141 MMOL/L (136-145); Total Protein 5.7 G/DL (6.4-8.3); Troponin I Only 0.486 NG/ML (0.00-0.045)
[2017-01-01] MEDS: INSULIN REGULAR 100 UNIT/ML SUBCUT SCH (08:01)
--- NOTE | 2017-01-01 08:34 | XRay Report ---
History: Shortness of breath Date: 01/01/2017 Study: Chest x-ray PA and lateral Comparison exam: 12/31/2016 There is continued cardiomegaly. The mediastinal contours are stable in this patient status post prior median sternotomy. The pulmonary vasculature is not engorged. There is some continued strandy atelectatic change in the lung bases, with minimally improved aeration in the right base. There is no interval worsening. There is mild bilateral pleural effusion. Osseous structures are similar. The right IJ central lines unchanged. Impression: Continued mild bibasilar atelectasis with minimally improved aeration on the right. PROCEDURE INTERPRETED AT [facility] DEPARTMENT OF RADIOLOGY Final Report Signed by: Dr. Darling Boyd
--- NOTE | 2017-01-01 08:36 | EKG Report ---
Stationary ECG Study [facility] Test Date: 01/01/2017 8:35:15 AM Pat Name: SUSHMA CASTRO Department: Room: 271 Gender: M Rn Nursery: JOCELYN : 1950 Requested by: Vicente Mckinney Order Number: [id number] Reading MD: MARLENI LIRA Intervals [place] Rate: 102 P: 999 [place]: 0 QRS: -22 QRSD: 122 T: 111 QT: 362 QTc: 421 Interpretive Statements ATRIAL FIBRILLATION WITH RAPID VENTRICULAR RESPONSE BORDERLINE LEFT AXIS DEVIATION MODERATE INTRAVENTRICULAR CONDUCTION DELAY ST DEVIATION AND MODERATE T-WAVE ABNORMALITY, CONSIDER LATERAL ISCHEMIA Electronically Signed On 01-02-17 14:38:24 CDT by MARLENI LIRA [email or web address]
--- NOTE | 2017-01-01 09:37 | Cardiothoracic Progress Note ---
Cardiothoracic Subjective Interval history: Patient emergently on some better. Is beginning to ambulate a little more easily. His vital signs are stable and is breathing comfortably. He does remain in atrial fibrillation with a controlled ventricular response. Because of his continued atrial fib going to go ahead and start Eliquis therapy for anticoagulation. Exam (Progress Note) - Constitutional Vitals: Period Temp Pulse Resp BP Sys/Lobo Pulse Ox Last 24 Hr 97.6 F-98.8 F 80-111 16-20 95-135/56-84 96-98 Result/EKG - Labs CBC & BMP: 01/01/17 Unknown 01/01/17 04:13 Labs: Laboratory Results - last 24 hr 12/31/16 12/31/16 12/31/16 12:11 16:36 20:19 WBC RBC Hgb Hct MCV MCH MCHC RDW Plt Count MPV Neut % (Auto) Lymph % (Auto) [place] % (Auto) Eos % (Auto) Baso % (Auto) Neut # (Auto) Lymph # (Auto) [place] # (Auto) Eos # (Auto) Baso # (Auto) Immature Gran % Nucleated RBC % Immature Gran # Nucleated RBCs # Sodium Potassium Chloride Carbon Dioxide Anion Gap BUN Creatinine GFR Calculation BUN/Creatinine Ratio Glucose POC Glucose 107 H 93 96 Calculated Osmolality Calcium Magnesium Total Bilirubin Direct Bilirubin Indirect Bilirubin AST ALT Alkaline Phosphatase Total Creatine Kinase CK-MB (CK-2) Troponin I Total Protein Albumin Globulin Albumin/Globulin Ratio 01/01/17 01/01/17 01/01/17 04:13 07:57 Unknown WBC 12.7 H D RBC 3.95 Hgb 11.7 L Hct 36.1 L MCV 91.4 MCH 30 MCHC 32.4 RDW 15.3 Plt Count 214 D MPV 11.2 Neut % (Auto) 62.2 Lymph % (Auto) 21.[address] [place] % (Auto) 12.1 Eos % (Auto) 3.2 Baso % (Auto) 0.2 Neut # (Auto) 7.9 H Lymph # (Auto) 2.7 [place] # (Auto) 1.5 H Eos # (Auto) 0.4 Baso # (Auto) 0.0 Immature Gran % 1.2 Nucleated RBC % 0.0 Immature Gran # 0.15 Nucleated RBCs # 0.00 Sodium 141 Potassium 4.3 Chloride 105 Carbon Dioxide 25 Anion Gap 15.3 H BUN 34 H Creatinine 1.20 GFR Calculation 99 BUN/Creatinine Ratio 28.00 H Glucose 105 POC Glucose 98 Calculated Osmolality 288.3 Calcium 9.1 Magnesium 2.0 Total Bilirubin 1.10 H Direct Bilirubin 0.2 Indirect Bilirubin 0.9 AST 18 ALT 21 Alkaline Phosphatase 47 Total Creatine Kinase 74 D CK-MB (CK-2) 1.6 Troponin I 0.486 H D Total Protein 5.7 L Albumin 3.3 L Globulin 2.4 Albumin/Globulin Ratio 1.3 Quality Measures - VTE Contraindication to Pharmacological VTE Prophylaxis: High Risk of Bleeding Specialty Discharge - Follow Up or Referrals
[2017-01-01] MEDS: CITALOPRAM 20 MG TABLET PO SCH (09:49)
[2017-01-01] MEDS: BENAZEPRIL 40 MG TABLET PO SCH (09:49)
[2017-01-01] MEDS: TRIAMTERENE/HCTZ 37.5-25 MG TABLET PO SCH (09:49)
[2017-01-01] MEDS: CHOLECALCIFEROL 1,000 UNIT TABLET PO SCH (09:49)
[2017-01-01] MEDS: DILTIAZEM CD 120 MG CAPSULE PO SCH (09:50)
[2017-01-01] MEDS: DOCUSATE SODIUM 100 MG CAPSULE PO SCH (09:50)
[2017-01-01] MEDS: ATORVASTATIN 10 MG TABLET PO SCH (09:50)
[2017-01-01] MEDS: ASPIRIN EC 325 MG TABLET PO SCH (09:50)
[2017-01-01] MEDS: FERROUS SULFATE 325 MG TABLET PO SCH (09:50)
[2017-01-01] MEDS: PANTOPRAZOLE 40 MG TABLET PO SCH (09:51)
[2017-01-01] MEDS: AMIODARONE 200 MG TABLET PO SCH ×2 (09:51→21:15)
[2017-01-01] MEDS: CHLORHEXIDINE 0.12% ORAL RINSE 60 ML BOTTLE SWISH/SPIT SCH ×2 (09:52→21:16)
[2017-01-01] MEDS: APIXABAN 5 MG TABLET PO SCH ×2 (09:58→21:15)
[2017-01-02] MEDS: oxyCODONE/ACETAMINOPHEN 5-325 MG TABLET PO PRN ×4 (01:33→20:17)
--- NOTE | 2017-01-02 06:25 | Cardiothoracic Progress Note ---
Cardiothoracic Subjective Interval history: Patient is feeling better this morning. His vital signs are stable and he is afebrile. His wound drainage has decreased. He remains in atrial fibrillation with a controlled ventricular response. I am going to decrease his amiodarone but otherwise continue his present regimen. Exam (Progress Note) - Constitutional Vitals: Period Temp Pulse Resp BP Sys/Lobo Pulse Ox Last 24 Hr 98.0 F-98.2 F 68-91 16-20 102-137/49-84 93-100 Result/EKG - Labs CBC & BMP: 01/01/17 Unknown 01/01/17 04:13 Labs: Laboratory Results - last 24 hr 01/01/17 07:57 POC Glucose 98 Quality Measures - VTE Contraindication to Pharmacological VTE Prophylaxis: High Risk of Bleeding Specialty Discharge - Follow Up or Referrals
[2017-01-02] MEDS: BENAZEPRIL 40 MG TABLET PO SCH (10:15)
[2017-01-02] MEDS: CHOLECALCIFEROL 1,000 UNIT TABLET PO SCH (10:15)
[2017-01-02] MEDS: DILTIAZEM CD 120 MG CAPSULE PO SCH (10:15)
[2017-01-02] MEDS: PANTOPRAZOLE 40 MG TABLET PO SCH (10:16)
[2017-01-02] MEDS: FERROUS SULFATE 325 MG TABLET PO SCH (10:16)
[2017-01-02] MEDS: CITALOPRAM 20 MG TABLET PO SCH (10:16)
[2017-01-02] MEDS: ASPIRIN EC 325 MG TABLET PO SCH (10:17)
[2017-01-02] MEDS: AMIODARONE 200 MG TABLET PO SCH ×2 (10:17→20:17)
[2017-01-02] MEDS: DOCUSATE SODIUM 100 MG CAPSULE PO SCH (10:17)
[2017-01-02] MEDS: APIXABAN 5 MG TABLET PO SCH ×2 (10:17→20:17)
[2017-01-02] MEDS: ATORVASTATIN 10 MG TABLET PO SCH (10:17)
[2017-01-02] MEDS: TRIAMTERENE/HCTZ 37.5-25 MG TABLET PO SCH (10:25)
[2017-01-02] MEDS: CHLORHEXIDINE 0.12% ORAL RINSE 60 ML BOTTLE SWISH/SPIT SCH ×2 (10:25→20:20)
[2017-01-03] MEDS: oxyCODONE/ACETAMINOPHEN 5-325 MG TABLET PO PRN ×4 (01:35→21:17)
--- NOTE | 2017-01-03 06:19 | Cardiothoracic Progress Note ---
Cardiothoracic Subjective Interval history: Patient looks and feels okay. His vital signs are stable and he has maintained sinus rhythm. He is afebrile and is breathing comfortably. We are slowly increasing his activity as tolerated. Exam (Progress Note) - Constitutional Vitals: Period Temp Pulse Resp BP Sys/Lobo Pulse Ox Last 24 Hr 97.2 F-98.6 F 67-77 16-20 83-130/45-62 93-96 Result/EKG - Labs CBC & BMP: 01/01/17 Unknown 01/01/17 04:13 Labs: Laboratory Results - last 24 hr 01/02/17 07:34 POC Glucose 99 Quality Measures - VTE Contraindication to Pharmacological VTE Prophylaxis: High Risk of Bleeding Specialty Discharge - Follow Up or Referrals
[2017-01-03] MEDS: CITALOPRAM 20 MG TABLET PO SCH (09:02)
[2017-01-03] MEDS: CHOLECALCIFEROL 1,000 UNIT TABLET PO SCH (09:02)
[2017-01-03] MEDS: ATORVASTATIN 10 MG TABLET PO SCH (09:02)
[2017-01-03] MEDS: BENAZEPRIL 40 MG TABLET PO SCH (09:02)
[2017-01-03] MEDS: DILTIAZEM CD 120 MG CAPSULE PO SCH (09:03)
[2017-01-03] MEDS: AMIODARONE 200 MG TABLET PO SCH ×2 (09:03→21:17)
[2017-01-03] MEDS: APIXABAN 5 MG TABLET PO SCH ×2 (09:03→21:17)
[2017-01-03] MEDS: DOCUSATE SODIUM 100 MG CAPSULE PO SCH (09:03)
[2017-01-03] MEDS: ASPIRIN EC 325 MG TABLET PO SCH (09:04)
[2017-01-03] MEDS: FERROUS SULFATE 325 MG TABLET PO SCH (09:04)
[2017-01-03] MEDS: PANTOPRAZOLE 40 MG TABLET PO SCH (09:04)
[2017-01-03] MEDS: TRIAMTERENE/HCTZ 37.5-25 MG TABLET PO SCH (09:05)
[2017-01-03] MEDS: CHLORHEXIDINE 0.12% ORAL RINSE 60 ML BOTTLE SWISH/SPIT SCH ×2 (09:08→21:18)
[2017-01-03] MEDS ORDERED: LACTATED RINGERS 500 ML IV ONE (13:06)
[2017-01-03] MEDS: LACTATED RINGERS 1,000 ML IV SCH ×2 (16:23→21:40)
[2017-01-04] MEDS: oxyCODONE/ACETAMINOPHEN 5-325 MG TABLET PO PRN ×4 (01:27→20:26)
[2017-01-04 06:28] LABS: Basophils % 0.2 % (0.0-0.8); Eosinophils # 0.3 10*3/uL (0.0-0.87); Eosinophils % 3.5 % (0.00-10.9); Hemoglobin 10.7 GM/DL (14.0-18.0); Immature Granulocytes % 0.9 %; Immature Granulocytes Absolute 0.07 #; Lymphocytes # 1.8 10*3/uL (1.4-4.0); Lymphocytes % 21.6 % (21.2-54.2); Mean Corpuscular HGB Conc 32.4 GM/DL (32-36); Mean Corpuscular Hemoglobin 30 PG (27-34); Mean Corpuscular Volume 92.7 FL (87-102); Mean Platelet Volume 11.6 FL (9.6-12.0); Monocytes # 0.9 10*3/uL (0.11-0.8); Monocytes % 10.8 % (1.7-12.7); Neutrophils # 5.2 10*3/uL (1.4-7.4); Platelet Count 178 T/CUMM (130-400); Red Blood Count 3.56 MC/CUMM (3.8-5.5); Red Cell Distribution Width 15.5 % (9.3-17.3); White Blood Count 8.2 T/CUMM (4-12)
[2017-01-04] MEDS ORDERED: DILTIAZEM 50 MG/10 ML VIAL IV ONE (06:31)
[2017-01-04] MEDS ORDERED: AMIODARONE INJ 100 MG in DEXTROSE 5% 100 ML IV ONE (06:31)
[2017-01-04] MEDS ORDERED: DILTIAZEM 100 MG VIAL.ADD IV ONE ×2 (06:36→06:41)
[2017-01-04] MEDS ORDERED: AMIODARONE 150 MG/3 ML VIAL ONE (06:36)
--- NOTE | 2017-01-04 06:39 | Cardiothoracic Progress Note ---
Cardiothoracic Subjective Interval history: Patient is doing well except for intermittent atrial fibrillation. He is on amiodarone and I am going to supplement that with 100 mg bolus this morning. We will use Cardizem infusion for rate control. Otherwise his overall progress is good with stable vital signs and the patient is breathing comfortably. We will gradually increase his activity according to routine postoperative protocol. Exam (Progress Note) - Constitutional Vitals: Period Temp Pulse Resp BP Sys/Lobo Pulse Ox Last 24 Hr 97.8 F-98.7 F 66-84 18-20 81-122/41-77 92-95 Result/EKG - Labs CBC & BMP: 01/04/17 04:00 01/01/17 04:13 Labs: Laboratory Results - last 24 hr 01/04/17 04:00 WBC 8.2 D RBC 3.56 L Hgb 10.7 L Hct 33.0 L MCV 92.7 MCH 30 MCHC 32.4 RDW 15.5 Plt Count 178 MPV 11.6 Neut % (Auto) 63.0 Lymph % (Auto) 21.6 Drew % (Auto) 10.8 Eos % (Auto) 3.5 Baso % (Auto) 0.2 Neut # (Auto) 5.2 Lymph # (Auto) 1.8 Drew # (Auto) 0.9 H Eos # (Auto) 0.3 Baso # (Auto) 0.0 Immature Gran % 0.9 Nucleated RBC % 0.0 Immature Gran # 0.07 Nucleated RBCs # 0.00 Quality Measures - VTE Contraindication to Pharmacological VTE Prophylaxis: High Risk of Bleeding Specialty Discharge - Follow Up or Referrals
[2017-01-04] MEDS ORDERED: DILTIAZEM INJ 100 MG in SODIUM CHLORIDE 0.9% 100 ML IV SCH (07:00)
[2017-01-04 07:05] LABS: Albumin 2.8 G/DL (3.4-5.0); Bilirubin,Total 0.6 MG/DL (0.2-1.0); Calcium 8.4 MG/DL (8.5-10.1); Potassium 4.3 MMOL/L (3.5-5.1); Total Protein 5.3 G/DL (6.4-8.3)
[2017-01-04] MEDS: ATORVASTATIN 10 MG TABLET PO SCH (09:14)
[2017-01-04] MEDS: CITALOPRAM 20 MG TABLET PO SCH (09:14)
[2017-01-04] MEDS: CHOLECALCIFEROL 1,000 UNIT TABLET PO SCH (09:14)
[2017-01-04] MEDS: ASPIRIN EC 325 MG TABLET PO SCH (09:14)
[2017-01-04] MEDS: PANTOPRAZOLE 40 MG TABLET PO SCH (09:14)
[2017-01-04] MEDS: APIXABAN 5 MG TABLET PO SCH ×2 (09:14→20:26)
[2017-01-04] MEDS: FERROUS SULFATE 325 MG TABLET PO SCH (09:14)
[2017-01-04] MEDS: DILTIAZEM CD 120 MG CAPSULE PO SCH (09:15)
[2017-01-04] MEDS: AMIODARONE 200 MG TABLET PO SCH ×2 (09:15→20:26)
[2017-01-04] MEDS: DOCUSATE SODIUM 100 MG CAPSULE PO SCH (09:15)
[2017-01-04] MEDS: CHLORHEXIDINE 0.12% ORAL RINSE 60 ML BOTTLE SWISH/SPIT SCH ×2 (09:25→20:26)
[2017-01-04] MEDS: LACTATED RINGERS 1,000 ML IV SCH (09:25)
[2017-01-05] MEDS: oxyCODONE/ACETAMINOPHEN 5-325 MG TABLET PO PRN ×3 (01:46→18:33)
[2017-01-05] MEDS: DILTIAZEM CD 120 MG CAPSULE PO SCH (08:20)
[2017-01-05] MEDS: ATORVASTATIN 10 MG TABLET PO SCH (08:20)
[2017-01-05] MEDS: CHOLECALCIFEROL 1,000 UNIT TABLET PO SCH (08:20)
[2017-01-05] MEDS: CITALOPRAM 20 MG TABLET PO SCH (08:20)
[2017-01-05] MEDS: CHLORHEXIDINE 0.12% ORAL RINSE 60 ML BOTTLE SWISH/SPIT SCH ×2 (08:21→21:25)
[2017-01-05] MEDS: FERROUS SULFATE 325 MG TABLET PO SCH (08:21)
[2017-01-05] MEDS: PANTOPRAZOLE 40 MG TABLET PO SCH (08:21)
[2017-01-05] MEDS: DOCUSATE SODIUM 100 MG CAPSULE PO SCH (08:21)
[2017-01-05] MEDS: ASPIRIN EC 325 MG TABLET PO SCH (08:21)
[2017-01-05] MEDS: AMIODARONE 200 MG TABLET PO SCH ×3 (08:21→21:23)
[2017-01-05] MEDS: APIXABAN 5 MG TABLET PO SCH ×2 (08:21→21:23)
--- NOTE | 2017-01-05 09:14 | Cardiothoracic Progress Note ---
Cardiothoracic Subjective Interval history: Patient looks and feels okay. Vital signs are stable and he is breathing comfortably. He does have an erythematous area at the distal portion of his sternotomy incision however this is not draining and does not appear to be uncomfortable on palpation. He has been consistently afebrile and his white count is down to 8000. Nevertheless I am going to start him on Levaquin and continue observation of this wound because he is a high risk candidate for sternal wound infection. He also has been in and out of atrial fibrillation over the past 12 hours and I am going to increase some of his medicines. Exam (Progress Note) - Constitutional Vitals: Period Temp Pulse Resp BP Sys/Lobo Pulse Ox Last 24 Hr 96.4 F-99.0 F 60-130 18-20 109-133/56-75 91-97 Result/EKG - Labs CBC & BMP: 01/04/17 04:00 01/04/17 Unknown Quality Measures - VTE Contraindication to Pharmacological VTE Prophylaxis: High Risk of Bleeding Specialty Discharge - Follow Up or Referrals
[2017-01-05] MEDS: CLINDAMYCIN INJ 600 MG in PREMIX 1 EACH IV SCH ×2 (10:35→17:03)
[2017-01-05] MEDS: DILTIAZEM CD 240 MG CAPSULE PO SCH (21:23)
[2017-01-06] MEDS: oxyCODONE/ACETAMINOPHEN 5-325 MG TABLET PO PRN ×3 (00:54→20:02)
[2017-01-06] MEDS: CLINDAMYCIN INJ 600 MG in PREMIX 1 EACH IV SCH ×3 (01:33→17:29)
--- NOTE | 2017-01-06 08:19 | Cardiothoracic Progress Note ---
Cardiothoracic Subjective Interval history: Overall patient is feeling better. He is back in sinus rhythm on his present medicines. His wound looks okay except for a small area of erythema in the midportion of his sternotomy. This is nontender but I think we will continue antibiotics for now hopefully just as a preventative measure. Exam (Progress Note) - Constitutional Vitals: Period Temp Pulse Resp BP Sys/Lobo Pulse Ox Last 24 Hr 97.9 F-99 F 64-130 18-20 84-142/53-61 94-97 Result/EKG - Labs CBC & BMP: 01/04/17 04:00 01/04/17 Unknown Quality Measures - VTE Contraindication to Pharmacological VTE Prophylaxis: High Risk of Bleeding Specialty Discharge - Follow Up or Referrals
[2017-01-06] MEDS: CHOLECALCIFEROL 1,000 UNIT TABLET PO SCH (09:22)
[2017-01-06] MEDS: APIXABAN 5 MG TABLET PO SCH ×2 (09:22→20:02)
[2017-01-06] MEDS: AMIODARONE 200 MG TABLET PO SCH ×2 (09:22→20:03)
[2017-01-06] MEDS: DOCUSATE SODIUM 100 MG CAPSULE PO SCH (09:23)
[2017-01-06] MEDS: PANTOPRAZOLE 40 MG TABLET PO SCH (09:23)
[2017-01-06] MEDS: CITALOPRAM 20 MG TABLET PO SCH (09:23)
[2017-01-06] MEDS: FERROUS SULFATE 325 MG TABLET PO SCH (09:23)
[2017-01-06] MEDS: DILTIAZEM CD 240 MG CAPSULE PO SCH ×2 (09:23→20:02)
[2017-01-06] MEDS: ATORVASTATIN 10 MG TABLET PO SCH (09:23)
[2017-01-06] MEDS: ASPIRIN EC 325 MG TABLET PO SCH (09:23)
[2017-01-06] MEDS: CHLORHEXIDINE 0.12% ORAL RINSE 60 ML BOTTLE SWISH/SPIT SCH ×2 (09:24→20:04)
[2017-01-06] MEDS: ALUMINUM/MAGNES/SIMETH MAX STR 30 ML UDCUP PO PRN (23:52)
[2017-01-07] MEDS: CLINDAMYCIN INJ 600 MG in PREMIX 1 EACH IV SCH ×3 (01:44→17:40)
[2017-01-07] MEDS: oxyCODONE/ACETAMINOPHEN 5-325 MG TABLET PO PRN ×5 (01:45→21:18)
--- NOTE | 2017-01-07 08:54 | Cardiothoracic Progress Note ---
Cardiothoracic Subjective Interval history: Patient looks and feels better. His wound is looking some better with less erythema. He continues afebrile. He is breathing comfortably and is generally increasing his activities as tolerated. Exam (Progress Note) - Constitutional Vitals: Period Temp Pulse Resp BP Sys/Lobo Pulse Ox Last 24 Hr 97.7 F-98.6 F 59-77 18-20 127-167/60-76 92-96 Result/EKG - Labs CBC & BMP: 01/04/17 04:00 01/04/17 Unknown Quality Measures - VTE Contraindication to Pharmacological VTE Prophylaxis: High Risk of Bleeding Specialty Discharge - Follow Up or Referrals
[2017-01-07] MEDS: CITALOPRAM 20 MG TABLET PO SCH (09:35)
[2017-01-07] MEDS: CHOLECALCIFEROL 1,000 UNIT TABLET PO SCH (09:38)
[2017-01-07] MEDS: ASPIRIN EC 325 MG TABLET PO SCH (09:40)
[2017-01-07] MEDS: DOCUSATE SODIUM 100 MG CAPSULE PO SCH (09:40)
[2017-01-07] MEDS: FERROUS SULFATE 325 MG TABLET PO SCH (09:40)
[2017-01-07] MEDS: PANTOPRAZOLE 40 MG TABLET PO SCH (09:41)
[2017-01-07] MEDS: AMIODARONE 200 MG TABLET PO SCH ×2 (09:42→20:15)
[2017-01-07] MEDS: ATORVASTATIN 10 MG TABLET PO SCH (09:42)
[2017-01-07] MEDS: APIXABAN 5 MG TABLET PO SCH ×2 (09:44→20:15)
[2017-01-07] MEDS: DILTIAZEM CD 240 MG CAPSULE PO SCH ×2 (09:44→20:14)
[2017-01-07] MEDS: CHLORHEXIDINE 0.12% ORAL RINSE 60 ML BOTTLE SWISH/SPIT SCH ×2 (09:45→20:49)
[2017-01-07] MEDS: ALUMINUM/MAGNES/SIMETH MAX STR 30 ML UDCUP PO PRN (20:17)
[2017-01-08] MEDS: CLINDAMYCIN INJ 600 MG in PREMIX 1 EACH IV SCH ×3 (01:34→17:25)
[2017-01-08] MEDS: oxyCODONE/ACETAMINOPHEN 5-325 MG TABLET PO PRN ×5 (02:00→22:06)
--- NOTE | 2017-01-08 09:02 | Cardiothoracic Progress Note ---
Cardiothoracic Subjective Interval history: Patient looks and feels fine. Vital signs are stable and he is afebrile. He is breathing comfortably. He is gradually increasing his activity as tolerated. He still has a small area of erythema on his sternal wound however this is nontender and there is no fluctuance palpable. I think he can be discharged in the morning and I believe I will leave him on oral antibiotics for at least another week to 10 days. Exam (Progress Note) - Constitutional Vitals: Period Temp Pulse Resp BP Sys/Lobo Pulse Ox Last 24 Hr 97.6 F-98.8 F 55-64 16-20 108-136/58-74 93-96 Result/EKG - Labs CBC & BMP: 01/04/17 04:00 01/04/17 Unknown Labs: Laboratory Results - last 24 hr 01/07/17 01/07/17 10:46 13:51 POC Glucose 101 159 H Quality Measures - VTE Contraindication to Pharmacological VTE Prophylaxis: High Risk of Bleeding Specialty Discharge - Follow Up or Referrals
[2017-01-08] MEDS: CHOLECALCIFEROL 1,000 UNIT TABLET PO SCH (09:54)
[2017-01-08] MEDS: PANTOPRAZOLE 40 MG TABLET PO SCH (09:55)
[2017-01-08] MEDS: CITALOPRAM 20 MG TABLET PO SCH (09:55)
[2017-01-08] MEDS: DOCUSATE SODIUM 100 MG CAPSULE PO SCH (09:59)
[2017-01-08] MEDS: AMIODARONE 200 MG TABLET PO SCH ×2 (09:59→20:34)
[2017-01-08] MEDS: APIXABAN 5 MG TABLET PO SCH ×2 (09:59→20:34)
[2017-01-08] MEDS: DILTIAZEM CD 240 MG CAPSULE PO SCH ×2 (10:00→20:34)
[2017-01-08] MEDS: ASPIRIN EC 325 MG TABLET PO SCH (10:01)
[2017-01-08] MEDS: FERROUS SULFATE 325 MG TABLET PO SCH (10:02)
[2017-01-08] MEDS: ATORVASTATIN 10 MG TABLET PO SCH (10:02)
[2017-01-08] MEDS: CHLORHEXIDINE 0.12% ORAL RINSE 60 ML BOTTLE SWISH/SPIT SCH ×2 (10:03→20:34)
[2017-01-09] MEDS: CLINDAMYCIN INJ 600 MG in PREMIX 1 EACH IV SCH (01:39)
[2017-01-09] MEDS: oxyCODONE/ACETAMINOPHEN 5-325 MG TABLET PO PRN ×2 (01:56→09:02)
--- NOTE | 2017-01-09 06:33 | Discharge Summary ---
Hospital Course - Hospital Course Hospital Course: History of present illness: Patient is 66-year-old man with increasing symptoms of substernal chest discomfort who presented to [facility] for evaluation. Cardiac catheterization demonstrated critical left main coronary artery disease and the patient was referred for bypass surgery. Of significance is the patient has morbid obesity and weighs greater than 400 pounds. He was admitted for bypass surgery. Past medical history review of systems social history and family history are documented in his admission notes. Hospital course: Patient was taken to surgery and two-vessel bypass grafting was carried out was graft to the obtuse marginal and anterior descending coronary arteries. Postoperative course was complicated by intermittent bouts of atrial fibrillation which were eventually controlled with amiodarone therapy. Patient also developed some erythema of the lower end of his sternal wound however there was no drainage and there was no tenderness or fluctuance involved. Patient was consistently afebrile with a normal white count during this process. I think that we will continue to watch this and continue clindamycin therapy for now. Patient is to be seen in follow-up in 1 month and his discharge medications are listed below. Specialty Discharge - Follow Up or Referrals Follow up with: Vicente Zavala MD [Physician] - 1 Month Discharge Plan - Discharge Data Condition at Discharge: Stable Discharge Diet: advance to your usual diet Activity: resume usual activities as tolerated Hygiene: no restrictions Weight Bearing at Discharge: full weight bearing Driving: not until seen by doctor - Discharge Medications New Apixaban [Eliquis] 5 mg PO BID 60 Days Amiodarone Tab [Cordarone Tab] 200 mg PO BID #60 tablet Aspirin EC Tab 325 mg PO DAILY tablet Clindamycin Cap [Cleocin Cap] 300 mg PO Q8HR #60 capsule Diltiazem Cd Cap [Cardizem CD] 240 mg PO BID #60 capsule Continue hydrALAZINE TAB [Apresoline Tab] 50 mg PO TID Benazepril [Lotensin] 40 mg PO DAILY Triamterene/Hydrochlorothiazid [Triamterene-Hctz 37.5-25 mg Tb] 1 tablet PO DAILY Furosemide 40 mg PO DAILY Cholecalciferol (Vitamin D3) [Vitamin D3] 5,000 unit PO DAILY Atorvastatin Calcium 10 mg PO DAILY Citalopram Hydrobromide [Citalopram HBr] 20 mg PO DAILY - Follow Up or Referral - Forms/Instructions Instructions: Coronary Artery Bypass Graft (DC), Heart Healthy Diet (GEN), Sternal Precautions (GEN) Exam - Constitutional Vitals: Period Temp Pulse Resp BP Sys/Lobo Pulse Ox Last 24 Hr 97.6 F-98.5 F 60-71 16-20 131-161/64-74 95-96 Discharge Results Procedures and tests throughout hospitalization: Pending Orders 12/25/16 11:30 Fresh Frozen Plasma Routine Red Blood Cells Leuko Red Routine Single Donor Platelets Routine Type and Screen Routine Labs on day of discharge: Labs from last 24 hours 01/08/17 19:48 POC Glucose 146 H DS: Provider Date of admission: 12/21/16 15:47 Primary care physician: . No PCP Attending physician on admission: Vicente Zavala MD Consults: 12/21/16 11:57 Consult to Dietitian [CONS] Routine Reason for Dietitian: Other Consult Comment: low salt, low cholesterol, diet 12/27/16 06:01 Consult to Cardiac Rehabilitation [CONS] Routine Reason for Cardiac Rehabilitation: Other Consult Comment: Post CABG/heart surgery Consult to Diabetes Center, Educator [CONS] Routine Reason for Pega Developer: Diabetes Education Initial Insulin Education Consult Comment: insulin education Consult to Dietitian [CONS] Routine Reason for Dietitian: Dietary Consult Consult Comment: Cardiac, low salt, low cholesterol diet Consult to Physical Therapy [CONS] Routine Reason for Physical Therapy: Other Consult Comment: CV Rehab Consult to Physician [CONS] Routine Comment: Management of diabetes Consulting Provider: Ilda Eng Consult to Specialist Group: Hospitalist Person Notified: ILDA Date Notified: 12/27/16 Time Notified: 11:10 12/27/16 11:31 Consult to Pharmacy [CONS] Routine Reason for Pharmacy Consult: Adjust Meds Renal Funct 12/27/16 12:37 Consult to Diabetes Center, Educator [CONS] Routine Reason for Pega Developer: Diabetes Education Consult to Dietitian [CONS] Routine Reason for Dietitian: Diet Instruction Discharging clinician: Vicente Zavala MD
[2017-01-09 08:31] VITALS: BP 143/91
[2017-01-09] MEDS: CHOLECALCIFEROL 1,000 UNIT TABLET PO SCH (08:59)
[2017-01-09] MEDS: CITALOPRAM 20 MG TABLET PO SCH (08:59)
[2017-01-09] MEDS: FERROUS SULFATE 325 MG TABLET PO SCH (08:59)
[2017-01-09] MEDS: AMIODARONE 200 MG TABLET PO SCH (09:00)
[2017-01-09] MEDS: ATORVASTATIN 10 MG TABLET PO SCH (09:00)
[2017-01-09] MEDS: DILTIAZEM CD 240 MG CAPSULE PO SCH (09:00)
[2017-01-09] MEDS: PANTOPRAZOLE 40 MG TABLET PO SCH (09:00)
[2017-01-09] MEDS: ASPIRIN EC 325 MG TABLET PO SCH (09:00)
[2017-01-09] MEDS: APIXABAN 5 MG TABLET PO SCH (09:00)
[2017-01-09] MEDS: CHLORHEXIDINE 0.12% ORAL RINSE 60 ML BOTTLE SWISH/SPIT SCH (09:05)
[2017-01-09] MEDS: DOCUSATE SODIUM 100 MG CAPSULE PO SCH (09:05)
[2017-01-09] MEDS ORDERED: CLINDAMYCIN 300 MG CAPSULE PO SCH (14:00)
== END 2017-01-09 11:00 | disposition home or self-care (01) | DRG 236 ==
LOC: N.TELES 15:47 → N.CVR 12-26 09:43 → N.TELES 12-27 07:50